=== PATIENT | male | born 1960 | race Caucasian/White ===

== ENCOUNTER 2019-07-13 16:56 | Observation (INO) | payer BC, OTHER ==
[2019-07-13] MEDS ORDERED: ASPIRIN 81 MG CHEWABLE TABLET ONE (17:35)
[2019-07-13 17:52] LABS: Protime INR 1.12
--- NOTE | 2019-07-13 17:52 | RAD REPORT ---
EXAM DESCRIPTION: RAD - Chest Single View - 07/13/2019 5:34 pm CLINICAL HISTORY: CHEST PAIN Chest pain. COMPARISON: CHEST SINGLE VIEW dated 11/09/2013; CHEST SINGLE VIEW dated 11/08/2013 FINDINGS: Portable technique limits examination quality. Mild interstitial pulmonary edema suspected. The heart is mildly prominent in size. No displaced frac tures. IMPRESSION: Mild CHF.
[2019-07-13 17:54] LABS: Absolute Lymphocytes (CBC) 2.7 K/uL (0.7-4.9); Basophils % 1.1 % (0-1.3); Hematocrit 40.5 % (39.6-49.0); MPV 10.3 fL (7.6-11.3); RBC Red Blood Cell Count 4.74 M/uL (4.33-5.43)
[2019-07-13 18:06] LABS: ALT/SGPT 37 U/L (12-78); AST/SGOT 14 U/L (15-37); Albumin 3.7 g/dL (3.4-5.0); Alkaline Phosphatase 80 U/L (45-117); BUN Blood Urea Nitrogen 17 mg/dL (7-18); Bicarbonate 27 mmol/L (21-32); Bilirubin Direct 0.2 mg/dL (0-0.2); Bilirubin Total 0.4 mg/dL (0.2-1.0); Glucose Level 87 mg/dL (74-106); Magnesium 2.1 mg/dL (1.8-2.4); NT PRO-BNP 223 pg/mL (<125); Potassium 3.9 mmol/L (3.5-5.1); Protein, Total 7.8 g/dL (6.4-8.2); Sodium Level 139 mmol/L (136-145); Troponin (Emerg Dept Use Only) < 0.02 ng/mL (0.0-0.045)
[2019-07-13] MEDS ORDERED: ALBUTEROL 2.5 MG/3 ML NEB SOL NEB PRN (21:06)
--- NOTE | 2019-07-13 21:13 | P.HP ---
Certification for Inpatient Patient admitted to: Observation With expected LOS: <2 Midnights Practitioner: I am a practitioner with admitting privileges, knowledge of patient current condition, hospital course, and medical plan of care. Services: Services provided to patient in accordance with Admission requirements found in Title 42 Section 412.3 of the Code of Federal Regulations Patient History Date of Service: 07/13/19 Reason for admission: Chest pressure History of Present Illness: 59-year-old morbidly obese gentleman with a history of GERD presented emergency department with a complaint of chest pressure of onset this afternoon. Patient reports 1 week history of fatigue and shortness of breath with exertion. He denied any palpitation or sweating or diaphoresis. He denied any nausea during the chest pressure episode. He denies any cough or wheezing. EKG done in the emergency department shows left bundle branch block which is new compared to his EKG done in 2013. His initial troponin is negative. Chest x-ray demonstrates mild congestive heart failure. Patient is placed under observation for ACS rule out and for further management of new onset CHF. Allergies No Known Allergies Allergy (Verified 11/08/13 14:01) Home Medications: Ibuprofen [Motrin*] 200 mg PO TID PRN 11/08/13 Pantoprazole [Protonix Tab*] 40 mg PO DAILY 11/08/13 - Past Medical/Surgical History Diabetic: No -: Diverticulosis -: Hiatal hernia -: GERD -: SHE -: Diverticulitis, 2012 -: Broken left little finger, 2006 - Family History Mother -: Other (see notes) (COPD, breast cancer.) - Social History Smoking Status: Former smoker Alcohol use: Yes CD- Drugs: No Caffeine use: Yes Place of Residence: Home Review of Systems Other: Except as documented, all other systems reviewed and negative. Physical Examination - Physical Exam General: Alert, In no apparent distress, Oriented x3 HEENT: Normocephalic, PERRLA, Mucous membr. moist/pink, EOMI, Sclerae nonicteric Neck: Supple, JVD not distended Respiratory: Clear to auscultation bilaterally, Normal air movement Cardiovascular: No edema, Regular rate/rhythm, Normal S1 S2, No murmurs Capillary refill: <2 Seconds Gastrointestinal: Normal bowel sounds, Soft and benign, No tenderness Musculoskeletal: No swelling, No erythema Integumentary: No rashes, No erythema Neurological: Normal speech, Normal strength at 5/5 x4 extr, Cranial nerves 3-12 intact - Studies Laboratory Data (last 24 hrs) 07/13/19 17:35: PT 13.2 H, INR 1.12 07/13/19 17:35: WBC 9.9, Hgb 13.5 L, Hct 40.5, Plt Count 201 07/13/19 17:35: Sodium 139, Potassium 3.9, BUN 17, Creatinine 0.96, Glucose 87, Magnesium 2.1, Total Bilirubin 0.4, AST 14 L, ALT 37, Alkaline Phosphatase 80 Assessment and Plan - Problems (Diagnosis) (1) Left bundle branch block Current Visit: Yes Status: Acute (2) New onset of congestive heart failure Current Visit: Yes Status: Acute (3) Chest pain Current Visit: No Status: Acute (4) Gastroesophageal reflux disease Current Visit: No Status: Chronic - Plan Place under observation. Trend troponin x3 Start aspirin, Plavix, beta-radha. IV Lasix. Given dose of full-dose Lovenox given new left bundle branch block. Obtain echocardiogram Cardiology consult Check TSH, hemoglobin A1c. Protonix for GERD - Advance Directives Does patient have a Living Will: No Does patient have a Durable POA for Healthcare: No
[2019-07-13] MEDS ORDERED: ENOXAPARIN 60 MG/0.6 ML SQ ONE (21:21)
[2019-07-13] MEDS ORDERED: ENOXAPARIN 100 MG/ML SYR SQ ONE (21:21)
[2019-07-13] MEDS ORDERED: CLOPIDOGREL 75 MG TABLET ONE (21:21)
[2019-07-13 22:56] VITALS: BMI 47.5
[2019-07-14 06:32] LABS: Phosphorus 3.8 mg/dL (2.5-4.9); Potassium 4.2 mmol/L (3.5-5.1)
[2019-07-14 07:10] LABS: Absolute Lymphocytes (CBC) 3.1 K/uL (0.7-4.9); Basophils % 0.8 % (0-1.3); Hematocrit 38.5 % (39.6-49.0); Lymphocytes % 34.1 % (15.3-44.8); MPV 10.5 fL (7.6-11.3); RBC Red Blood Cell Count 4.47 M/uL (4.33-5.43)
[2019-07-14] MEDS ORDERED: REGADENOSON 0.4 MG/5 ML SYR IV ONE (08:20)
--- NOTE | 2019-07-14 09:11 | P.PN ---
Subjective Date of Service: 07/14/19 Chief Complaint: Chest pressure Subjective: No new changes Patient reports no complaints. He states the chest pain has resolved. He denies shortness of breath at the moment. Physical Examination - Vital Signs Temperature: 96.9 F Blood Pressure: 121/56 Pulse: 70 Respirations: 16 Pulse Ox (%): 94 - Physical Exam General: Alert, In no apparent distress, Oriented x3 HEENT: Mucous membr. moist/pink Neck: Supple, JVD not distended Respiratory: Clear to auscultation bilaterally, Normal air movement Cardiovascular: No edema, Regular rate/rhythm, Normal S1 S2 Gastrointestinal: Normal bowel sounds, Non-distended, No tenderness Musculoskeletal: No swelling Integumentary: No rashes Neurological: Normal strength at 5/5 x4 extr - Studies Laboratory Data (last 24 hrs) 07/13/19 17:35: PT 13.2 H, INR 1.12 07/13/19 17:35: WBC 9.9, Hgb 13.5 L, Hct 40.5, Plt Count 201 07/13/19 17:35: Sodium 139, Potassium 3.9, BUN 17, Creatinine 0.96, Glucose 87, Magnesium 2.1, Total Bilirubin 0.4, AST 14 L, ALT 37, Alkaline Phosphatase 80 Assessment And Plan - Current Problems (Diagnosis) (1) Left bundle branch block Current Visit: Yes Status: Acute (2) New onset of congestive heart failure Current Visit: Yes Status: Acute (3) Chest pain Current Visit: No Status: Acute (4) Gastroesophageal reflux disease Current Visit: No Status: Chronic - Plan Troponin x3 is negative Continue aspirin, Plavix, metoprolol Continue IV Lasix. Patient given full-dose Lovenox in the ED yesterday. Full dose lovenox Obtain echocardiogram Cardiology consult. I spoke to Dr. Aguilar. He recommended nuclear stress test which has been requested. Cardiology to follow. Lipid profile within acceptable limits. Add lipitor. Protonix for GERD
--- NOTE | 2019-07-14 12:52 | EKG ---
Test Date: 2019-07-13 Test Time: 17:11:54 Keysmith: ROBERT MEASUREMENT RESULTS: Intervals: Rate: 83 LA: 196 QRSD: 164 QT: 428 QTc: 502 Mclean: P: 62 LA: 196 QRS: -25 T: 88 INTERPRETIVE STATEMENTS: Sinus rhythm with fusion complexes Left bundle branch block Abnormal ECG Compared to ECG 11/09/2013 06:50:05 Fusion complex(es) now present Left bundle-branch block now present Sinus bradycardia no longer present Sinus arrhythmia no longer present Electronically Signed On 07-14-19 12:50:27 CDT by Dajuan Aguilar
[2019-07-14] MEDS ORDERED: ALBUTEROL 2.5 MG/3 ML NEB SOL NEB PRN (14:00)
--- NOTE | 2019-07-14 14:10 | RAD REPORT ---
EXAM DESCRIPTION: NM - Rest Stress Cardiac Imaging - 07/14/2019 2:02 pm CLINICAL HISTORY: Chest pain COMPARISON: None. TECHNIQUE: The patient was administered approximately 10 mCi of Tc 99m Sestamibi prior to resting SP ECT imaging of the heart. The patient was then administered approximately 30 mCi of Tc 99m Sestamibi following exercise or pharmacologic stress. Multiplanar SPECT images were reviewed. FINDINGS: The end diastolic volume is 247 ml, the end systolic volume is 182 ml, and the ejection fr action is 27 %. No stress-induced ischemia confirmed. Diminished activity is seen along the inferior wall probably th e affects of diaphragm attenuation and ventriculomegaly. Focal scarring changes are evident anterior septal wall mid apex portion. IMPRESSION: No stress-induced ischemic changes identifiable. Patient has substantial ventriculomegaly with a 247 mL end-diastolic volume. Ejection fraction is zay y poor at 27%.
[2019-07-14] MEDS: FUROSEMIDE 40 MG/4 ML VIAL IV SCH ×2 (14:38→17:15)
[2019-07-14] MEDS: ASPIRIN EC 81 MG TAB PO SCH (14:38)
[2019-07-14] MEDS ORDERED: ATORVASTATIN 10 MG TAB PO SCH (21:00)
[2019-07-14] MEDS ORDERED: ENOXAPARIN 40 MG/0.4 ML SQ SCH (21:00)
--- NOTE | 2019-07-14 22:14 | CON ---
Date of Consultation: 07/14/2019 Reason For Consultation: Congestive heart failure. History Of Present Illness: Mr. Juarez is a 59-year-old male with history of gastroesophageal refl ux disease, sleep apnea, diverticulitis, and diverticulosis. He did not have any past cardiac histor y. The patient has morbid obesity. He came in with chest pressure and fatigue as well as shortness of breath with exertion that has been going on for about a week. He denied any nausea, vomiting, mo phoresis, PND, orthopnea, pedal edema, palpitation, or syncope. Denied any fever or chills. He has a left bundle-branch block on an EKG. Chest x-ray revealed mild congestive heart failure. Troponin was negative. Past Medical History: As stated earlier. Allergies: NONE. Medications: At home include ibuprofen and Protonix. Review of Systems: Negative. Social History: Negative. Family History: Positive for breast cancer and COPD. Physical Examination: General: He weighed 340 pounds. Blood pressure was 143/68. He was in sinus rhythm and was afebrile . O2 saturation was 96% on room air. HEENT: Negative. Neck: Supple without any bruit, lymphadenopathy, JVD, or thyromegaly. Chest: Rales in both bases. Cardiac: Regular rhythm and rate. No murmurs, gallops, or rubs. Abdomen: Obese, but benign. Extremities: Trace edema. Laboratory Data: His creatinine is 0.95. His hemoglobin was 13. His white count was normal. His t roponin was normal. His BNP was 223. His lipid profile was normal. Chest x-ray was stated earlier. His EKG showed left bundle-branch block. Impression And Plan: Dyspnea on exertion, chest tightness, and congestive heart failure by x-ray. T his is new onset. The patient is feeling better after diuresis. He is presently receiving aspirin, albuterol inhalers, Lasix. He is on Lipitor. He is on Plavix. He is on Lovenox. I think we need t o get a 2D echocardiogram. It would be reasonable to get a Lexiscan on him today to see if he has an y ischemia. Continue diuresis as well. His other problems include morbid obesity, gastroesophageal reflux disease. We will see what the echocardiogram and the Lexiscan show before making final decisi ons. NB/MODL Voice ID: [id number] Report ID: [id number]
[2019-07-15 05:48] VITALS: O2SAT 96
--- NOTE | 2019-07-15 07:44 | PN ---
Date of Progress Note: 07/15/2019 Mr. Juarez was admitted with chest pressure, gastroesophageal reflux disease. He has morbid obesit y, was found to have new evidence of congestive heart failure, has a left bundle branch block, unknow n duration. The stress test yesterday showed no ischemia; however, his ejection fraction came back 2 7%. He is feeling much better. He diuresed well. He is asymptomatic. However, his echocardiogram was not done yesterday, it will be done today. We will see what that shows prior to making decisions as far as discharge. The patient should go home on PASCUAL inhibitors, Coreg and Lasix. He needs to wa tch his fluid intake and salt intake and I will see him in the office in 2 weeks. GIOVANNI/JACKSON Voice ID: [id number] Report ID: [id number]
--- NOTE | 2019-07-15 08:36 | P.DS ---
Admission Date: 07/13/19 Discharge Date: 07/15/19 Disposition: ROUTINE DISCHARGE Discharge Condition: FAIR Reason for Admission: Chest pressure Consultations: Cardiology - Problems (1) Left bundle branch block Status: Acute (2) New onset of congestive heart failure Status: Acute (3) Chest pain Status: Acute (4) Gastroesophageal reflux disease Status: Chronic Brief History of Present Illness: 59-year-old morbidly obese gentleman with a history of GERD presented emergency department with a complaint of chest pressure of onset this afternoon. Patient reports 1 week history of fatigue and shortness of breath with exertion. He denied any palpitation or sweating or diaphoresis. He denied any nausea during the chest pressure episode. He denies any cough or wheezing. EKG done in the emergency department shows left bundle branch block which is new compared to his EKG done in 2013. His initial troponin is negative. Chest x-ray demonstrates mild congestive heart failure. Patient is placed under observation for ACS rule out and for further management of new onset CHF. Hospital Course: Patient admitted to the medical floor. Troponin trended came back negative. Patient seen by cardiology Nuclear stress test performed showed no evidence of it cardiac ischemia. It did report ventriculomegaly with low ejection fraction of 27%. Patient diagnosed with systolic heart failure. Patient prescribed Coreg, and PASCUAL-inhibitor and aspirin. He was given IV Lasix. Patient became compensated for CHF. Echocardiogram done report EF of 25-30% and severe anterior and anterior septal hypokinesis. He will follow with Dr. Aguilar as an outpatient within 1-2 weeks. Vital Signs/Physical Exam: Temp Pulse Resp BP Pulse Ox 96.0 F L 74 18 119/56 L 96 07/15/19 04:00 07/15/19 04:00 07/15/19 04:00 07/15/19 04:00 07/15/19 04:00 General: Alert, In no apparent distress HEENT: Normocephalic, Mucous membr. moist/pink Neck: Supple, JVD not distended Respiratory: Clear to auscultation bilaterally, Normal air movement Cardiovascular: No edema, Regular rate/rhythm, Normal S1 S2 Capillary refill: <2 Seconds Gastrointestinal: Normal bowel sounds, Soft and benign, No tenderness Musculoskeletal: No swelling, No erythema Integumentary: No rashes Neurological: Normal strength at 5/5 x4 extr Laboratory Data at Discharge: WBC 9.1 K/uL (4.3-10.9) 07/14/19 05:05 Hgb 13.1 g/dL (13.6-17.9) L 07/14/19 05:05 Hct 38.5 % (39.6-49.0) L 07/14/19 05:05 Plt Count 182 K/uL (152-406) 07/14/19 05:05 PT 13.2 SECONDS (9.5-12.5) H 07/13/19 17:35 INR 1.12 07/13/19 17:35 Sodium 141 mmol/L (136-145) 07/14/19 05:05 Potassium 4.2 mmol/L (3.5-5.1) 07/14/19 05:05 BUN 15 mg/dL (7-18) 07/14/19 05:05 Creatinine 0.95 mg/dL (0.55-1.3) 07/14/19 05:05 Glucose 96 mg/dL (74-106) 07/14/19 05:05 Phosphorus 3.8 mg/dL (2.5-4.9) 07/14/19 05:05 Magnesium 2.1 mg/dL (1.8-2.4) 07/13/19 17:35 Total Bilirubin 0.4 mg/dL (0.2-1.0) 07/13/19 17:35 AST 14 U/L (15-37) L 07/13/19 17:35 ALT 37 U/L (12-78) 07/13/19 17:35 Alkaline Phosphatase 80 U/L (45-117) 07/13/19 17:35 Troponin I < 0.02 ng/mL (0.0-0.045) 07/14/19 01:20 Triglycerides 59 mg/dL (<150) 07/14/19 05:05 Cholesterol 143 mg/dL (<200) 07/14/19 05:05 HDL Cholesterol 71 mg/dL (40-60) H 07/14/19 05:05 Cholesterol/HDL Ratio 2.01 07/14/19 05:05 Home Medications: Pantoprazole [Protonix Tab*] 40 mg PO DAILY 11/08/13 Cetirizine HCl [Zyrtec*] 10 mg PO DAILY PRN 07/13/19 Aspirin Chewable [Aspirin Chewable*] 81 mg PO DAILY #30 tab.chew 07/15/19 Atorvastatin Calcium [Lipitor] 40 mg PO BEDTIME #30 tab 07/15/19 Furosemide [Lasix] 40 mg PO DAILY #30 tablet 07/15/19 Lisinopril [Zestril] 5 mg PO DAILY #30 tablet 07/15/19 carvediloL [Coreg] 6.25 mg PO BID #60 tab 07/15/19 New Medications: Aspirin Chewable [Aspirin Chewable*] 81 mg PO DAILY #30 tab.chew carvediloL [Coreg] 6.25 mg PO BID #60 tab Furosemide [Lasix] 40 mg PO DAILY #30 tablet Atorvastatin Calcium [Lipitor] 40 mg PO BEDTIME #30 tab Lisinopril [Zestril] 5 mg PO DAILY #30 tablet Diet: AHA Activity: Ad jyoti Followup: Dajuan Aguilar MD [ACTIVE - CAN ADMIT] - Time spent managing pt's care (in minutes): 38
--- NOTE | 2019-07-15 08:55 | TREADPHA ---
DX: CONGESTIVE HEART FAILURE Date of Study: 07/14/2019 Ht: 5' 11 " Wt: 340 lb 14.4 oz Consulting Physician: JEANNE MEDICATIONS: PROVENTIL, ASPIRIN, LOVENOX, LASIX HISTORY: 59 YEAR OLD MALE WITH COMPLAINTS OF CHEST PAIN. HISTORY OF SMOKING AND ACID REFLUX. PHYSICIAL EXAMINATION: RESTING B.P.: 126/64 RESTING H.R.: 72 RESTING EKG: SINUS RHYTHM, LEFT BUNDLE BRANCH BLOCK. PROTOCOL: LEXISCAN EXERCISE TIME: 3:30 B.P. AT PEAK STRESS: 132/65 IMPRESSION: LEXISCAN INJECTED, INJECTED PER PROTOCOL. SEE NUCLEAR MEDICINE REPORT. NO SUPRA VENTRICULAR TACHYCARDIA, NO VENTRICULAR TACHYCARDIA, OCCASIONAL PREMATURE VENTRICULAR COMPLEXES. DENIED CHEST PAIN.
[2019-07-15] MEDS ORDERED: CLOPIDOGREL 75 MG TABLET PO SCH (09:00)
[2019-07-15] MEDS: FUROSEMIDE 40 MG/4 ML VIAL IV SCH (09:14)
[2019-07-15] MEDS: ASPIRIN EC 81 MG TAB PO SCH (09:14)
[2019-07-15 09:19] VITALS: BP 139/68
[2019-07-15 09:54] VITALS: TEMP 97.2
--- NOTE | 2019-07-15 12:21 | ECHO ---
HEIGHT: 5 ft 11 in WEIGHT: 340 lb 14.4 oz DATE OF STUDY: 07/15/[address]: mayito corrales 2-DIMENSIONAL: YES M.MODE: YES DOPPLER: YES COLOR FLOW: YES TDS: PORTABLE: DEFINITY: BUBBLE STUDY: DIAGNOSIS: CONGESTIVE HEART FAILURE CARDIAC HISTORY: CATHERIZATION: NO SURGERY: NO PROSTHETIC VALVE: NO PACEMAKER: NO MEASUREMENTS (cm) DIASTOLIC (NORMALS) SYSTOLIC (NORMALS) IVSd 1.2 (0.6-1.2) LA Diam 3.4 (1.9-4.0) LVEF 51% LVIDd 6.0 (3.5-5.7) LVIDs 4.4 (2.0-3.5) %FS 26% LVPWd 1.2 (0.6-1.2) Ao Diam 3.3 (2.0-3.7) 2 DIMENSIONAL ASSESSMENT: RIGHT ATRIUM: NORMAL LEFT ATRIUM: MILD ENLARGED RIGHT VENTRICLE: NORMAL LEFT VENTRICLE: DILATED TRICUSPID VALVE: NORMAL MITRAL VALVE: NORMAL PULMONIC VALVE: NORMAL AORTIC VALVE: NORMAL PERICARDIAL EFFUSION: NONE AORTIC ROOT: NORMAL LEFT VENTRICULAR WALL MOTION: MODERATE TO SEVERE LEFT VENTRICULAR DYSFUNCTION. EJECTION FRACTION 25-30%, ANTEROSEPTAL SEVERE HYPOKINESIS. DOPPLER/COLOR FLOW: DIASTOLIC DYSFUNCTION COMMENTS: MODERATE TO SEVERE LEFT VENTRICULAR DYSFUNCTION 25-30%. SEVERE ANTERIOR AND ANTEROSEPTAL HYPOKINESIS. DIASTOLIC DYSFUNCTION. TECHNOLOGIST: LORA HAYS
--- NOTE | 2019-07-19 13:38 | ER ---
Nurse's Notes [facility] Name: Denys Juarez Age: 59 yrs Sex: Male : 1960 Arrival Date: 07/13/2019 Time: 16:56 Bed 20 Private MD: Diagnosis: Chest pain, unspecified Presentation: 07/12 16:58 Chief complaint: Patient states: "I've been short of breath and fatigued for a while aa5 now but today I started with this pressure on my chest". Pt reports chest pressure to left side of chest radiating to mid-sternal area. Pt reports chronic slight cough, denies fever. 16:58 Coronavirus screen: Patient reports a cough. Patient reports shortness of breath or aa5 difficulty breathing. Patient denies measured and/or subjective temperature greater than 100.4F prior to today's visit. Patient denies travel on a cruise ship or to a country the [facility] currently lists as an affected area. Patient denies contact with known and/or suspected case of COVID-19. Ebola Screen: Patient negative for fever greater than or equal to 101.5 degrees Fahrenheit, and additional compatible Ebola Virus Disease symptoms. Initial Sepsis Screen: Does the patient meet any 2 criteria? No. Patient's initial sepsis screen is negative. Does the patient have a suspected source of infection? No. Patient's initial sepsis screen is negative. Risk Assessment: Do you want to hurt yourself or someone else? Patient reports no desire to harm self or others. Onset of symptoms was June 2019. 16:58 Acuity: MARGARETH 3 aa5 16:58 Method Of Arrival: Ambulatory aa5 Historical: - Allergies: 16:58 No Known Allergies; aa5 - Home Meds: 16:58 pantoprazole oral oral [Active]; aa5 - PMHx: 16:58 Acid Reflux; aa5 - PSHx: 16:58 diverticulitis; aa5 - Immunization history:: Adult Immunizations unknown. - Social history:: Smoking status: Patient/guardian denies using tobacco, but has a distant history of tobacco abuse. Screenin:07 Abuse screen: Denies threats or abuse. Nutritional screening: No deficits noted. rb1 Tuberculosis screening: No symptoms or risk factors identified. Fall Risk None identified. Assessment: 17:07 General: Appears in no apparent distress. comfortable, Behavior is calm, cooperative, rb1 Denies fever. General: Reports fatigue for. Pain: Complains of pain in left lateral chest Pain radiates to mid-sternal area Pain currently is 1 out of 10 on a pain scale. Quality of pain is described as pressure, Pain began 4 hours ago. Neuro: Level of Consciousness is awake, alert, obeys commands, Oriented to person, place, time, situation. Cardiovascular: Capillary refill < 3 seconds. Respiratory: Reports shortness of breath Airway is patent Respiratory effort is even, unlabored, Respiratory pattern is regular, symmetrical. GI: No signs and/or symptoms were reported involving the gastrointestinal system. : No signs and/or symptoms were reported regarding the genitourinary system. Derm: Skin is pink, warm \\T\\ dry. 18:00 Reassessment: Patient appears in no apparent distress at this time. No changes from [facility] previously documented assessment. 19:15 Reassessment: Patient appears in no apparent distress at this time. Patient and/or family updated on plan of care and expected duration. Pain level reassessed. Patient is alert, oriented x 3, equal unlabored respirations, skin warm/dry/pink. 20:51 Reassessment: Patient appears in no apparent distress at this time. No changes from previously documented assessment. Patient and/or family updated on plan of care and expected duration. Pain level reassessed. Patient is alert, oriented x 3, equal unlabored respirations, skin warm/dry/pink. 21:00 Reassessment: MD at bedside explained POC need for admit. Vital Signs: 16:58 BP 151 / 75; Pulse 100; Resp 20 S; Temp 97.8(O); Pulse Ox 96% on R/A; Weight 154.22 kg aa5 (R); Height 5 ft. 10 in. (177.80 cm) (R); Pain 1/10; 18:00 BP 126 / 66; Pulse 81; Resp 18; Pulse Ox 96% on R/A; rb1 19:30 BP 135 / 69; Pulse 77; Resp 18; Pulse Ox 97% on R/A; wh 20:30 BP 127 / 57; Pulse 74; Resp 18; Pulse Ox 95% on R/A; wh 21:00 BP 131 / 62; Pulse 73; Resp 18; Pulse Ox 99% on R/A; wh 16:58 Body Mass Index 48.78 (154.22 kg, 177.80 cm) aa5 ED Course: 16:56 Patient arrived in ED. as 16:58 Arm band placed on Patient placed in an exam room, on a stretcher. aa5 17:02 Yunior Mabry NP is PHCP. pm1 17:02 Edgar Jacobson MD is Attending Physician. pm1 17:07 Patient has correct armband on for positive identification. Bed in low position. Call rb1 light in reach. Side rails up X 1. shaft mechanic on. Pulse ox on. NIBP on. 17:07 Patient maintains SpO2 saturation greater than 95% on room air. rb1 17:10 Triage completed. aa5 17:25 Abbi Joe, RN is Primary Nurse. rb1 17:34 XRAY Chest (1 view) In Process Unspecified. EDMS 17:35 Inserted saline lock: 22 gauge in right antecubital area, using aseptic technique. rb1 Blood collected. 18:31 Regla Thompson MD is Hospitalizing Provider. pm1 21:24 No provider procedures requiring assistance completed. Patient admitted, IV remains in place. Administered Medications: 17:30 Drug: Aspirin Chewable Tablet 324 mg Route: PO; rb1 18:00 Follow up: Response: No adverse reaction [facility] 21:20 Drug: Lovenox 1 mg/kg Route: Sub-Q; Site: right lower abdomen; 21:24 Follow up: Response: No adverse reaction 21:20 Drug: PlaVIX 300 mg Route: PO; 21:24 Follow up: Response: No adverse reaction Outcome: 18:32 Decision to Hospitalize by Provider. pm1 21:24 Admitted to Med/surg accompanied by tech, via wheelchair, room 205, with chart, Report called to Gautam Hernandes RN 21:24 Condition: stable 21:24 Instructed on the need for admit. 21:25 Patient left the ED. Signatures: Dispatcher [employer] Elizabeth Esquivel Audri, RN RN aa5 Abbi Joe, GIORGI RN rb1 Yunior Mabry, MARITO BUHR MILL OPERATOR pm1 Georgina Sevilla
--- NOTE | 2019-07-19 13:38 | EDPHYS ---
Physician Documentation [facility] Name: Denys Juarez Age: 59 yrs Sex: Male : 1960 Arrival Date: 07/13/2019 Time: 16:56 Bed 20 Private MD: ED Physician Edgar Jacobson HPI: 07/12 17:13 This 59 yrs old Male presents to ER via Ambulatory with complaints of Chest pm1 Pressure. 17:13 The patient or guardian reports chest pain that is located primarily in the mid-sternal pm1 area. 17:13 Onset: 4 hour(s) ago. The pain does not radiate. Associated signs and symptoms: pm1 Pertinent positives: shortness of breath, with exertion. shortness of breath has been present for many months, Pertinent negatives: abdominal pain, cough, diaphoresis, lower extremity pain, lower extremity swelling, nausea, palpitations, syncope, vomiting. The chest pain is described as a pressure. Duration: The patient or guardian reports a single episode, that is still ongoing, but improving. Modifying factors: The symptoms are alleviated by nothing. the symptoms are aggravated by nothing. Severity of pain: in the emergency department the pain has improved is a 1 / 10 initially 4/10. The patient has not experienced similar symptoms in the past. The patient has not recently seen a physician, the patient's primary care provider is Dr. Heber GARCIA. Patient with chest pain that started 4 hours prior to arrival. Started in the left lower chest around his nipple then moved to midsternal area. Pain initially 4/10 and now 1/10. Historical: - Allergies: 16:58 No Known Allergies; aa5 - Home Meds: 16:58 pantoprazole oral oral [Active]; aa5 - PMHx: 16:58 Acid Reflux; aa5 - PSHx: 16:58 diverticulitis; aa5 - Immunization history:: Adult Immunizations unknown. - Social history:: Smoking status: Patient/guardian denies using tobacco, but has a distant history of tobacco abuse. ROS: 17:13 Constitutional: Negative for fever, chills, and weight loss, Neck: Negative for injury, pm1 pain, and swelling. 17:13 Abdomen/GI: Negative for abdominal pain, nausea, vomiting, diarrhea, and constipation, Back: Negative for injury and pain, MS/Extremity: Negative for injury and deformity, Skin: Negative for injury, rash, and discoloration, Neuro: Negative for headache, weakness, numbness, tingling, and seizure. 17:13 Cardiovascular: Positive for chest pain, Negative for edema, orthopnea, palpitations. 17:13 Respiratory: Positive for shortness of breath, on exertion. Negative for cough. Exam: 17:13 Constitutional: This is a well developed, well nourished patient who is awake, alert, pm1 and in no acute distress. Head/Face: Normocephalic, atraumatic. Chest/axilla: Normal chest wall appearance and motion. Nontender with no deformity. No lesions are appreciated. 17:13 Respiratory: Lungs have equal breath sounds bilaterally, clear to auscultation and percussion. No rales, rhonchi or wheezes noted. No increased work of breathing, no retractions or nasal flaring. Abdomen/GI: Soft, non-tender, with normal bowel sounds. No distension or tympany. No guarding or rebound. No evidence of tenderness throughout. Back: No spinal tenderness. No costovertebral tenderness. Full range of motion. Skin: Warm, dry with normal turgor. Normal color with no rashes, no lesions, and no evidence of cellulitis. MS/ Extremity: Pulses equal, no cyanosis. Neurovascular intact. Full, normal range of motion. 17:13 Cardiovascular: Rate: normal, Rhythm: regular, Pulses: no pulse deficits are appreciated, Heart sounds: normal, normal S1and S2, Edema: is not appreciated. 17:13 Neuro: Exam negative for acute changes, Orientation: is normal, Mentation: is normal, Motor: is normal, moves all fours. Vital Signs: 16:58 BP 151 / 75; Pulse 100; Resp 20 S; Temp 97.8(O); Pulse Ox 96% on R/A; Weight 154.22 kg aa5 (R); Height 5 ft. 10 in. (177.80 cm) (R); Pain 1/10; 18:00 BP 126 / 66; Pulse 81; Resp 18; Pulse Ox 96% on R/A; rb1 19:30 BP 135 / 69; Pulse 77; Resp 18; Pulse Ox 97% on R/A; wh 20:30 BP 127 / 57; Pulse 74; Resp 18; Pulse Ox 95% on R/A; wh 21:00 BP 131 / 62; Pulse 73; Resp 18; Pulse Ox 99% on R/A; wh 16:58 Body Mass Index 48.78 (154.22 kg, 177.80 cm) aa5 MDM: 17:12 Patient medically screened. pm1 18:20 Data reviewed: vital signs. Data interpreted: Pulse oximetry: on room air is 96 %. pm1 Interpretation: normal. Counseling: I had a detailed discussion with the patient and/or guardian regarding: the historical points, exam findings, and any diagnostic results supporting the discharge/admit diagnosis, the need for further work-up and treatment in the hospital. 18:36 Physician consultation: Regla Thompson MD was called at 18:36, was contacted at 18:36, pm1 regarding admission, patient's condition, Transition at during shift change: Robert will see the patient . 07/12 17:12 Order name: Basic Metabolic Panel; Complete Time: 18:08 pm07/12 17:12 Order name: CBC with Diff; Complete Time: 18:01 pm07/12 17:12 Order name: LFT's; Complete Time: 18:08 pm07/12 17:12 Order name: Magnesium; Complete Time: 18:08 pm07/12 17:12 Order name: NT PRO-BNP; Complete Time: 18:08 pm07/12 17:12 Order name: PT-INR; Complete Time: 18:01 pm07/12 17:12 Order name: Troponin (emerg Dept Use Only); Complete Time: 18:08 pm07/12 17:12 Order name: XRAY Chest (1 view); Complete Time: 18:01 pm07/12 17:12 Order name: EKG; Complete Time: 17:14 pm07/12 17:12 Order name: Cardiac monitoring; Complete Time: 17:41 pm07/12 17:12 Order name: EKG - Nurse/Tech; Complete Time: 17:41 pm07/12 17:12 Order name: IV Saline Lock; Complete Time: 17:41 pm07/12 17:12 Order name: Labs collected and sent; Complete Time: 17:41 pm07/12 17:12 Order name: O2 Per Protocol; Complete Time: 17:41 pm07/12 17:12 Order name: O2 Sat Monitoring; Complete Time: 17:42 pm1 EC:32 Rate is 83 beats/min. Rhythm is regular. No Q waves. T waves are Normal. No ST changes pm1 noted. Clinical impression: Left bundle branch block. Changes noted from previous ECG on November 09, 2013. Previous findings: Sinus arrythmia and Sinus bradycardia. Administered Medications: 17:30 Drug: Aspirin Chewable Tablet 324 mg Route: PO; rb1 18:00 Follow up: Response: No adverse reaction [facility] [place] 21:20 Drug: Lovenox 1 mg/kg Route: Sub-Q; Site: right lower abdomen; 21:24 Follow up: Response: No adverse reaction 21: Drug: PlaVIX 300 mg Route: PO; 21:24 Follow up: Response: No adverse reaction Disposition: 07/13/19 18:32 Hospitalization ordered by Regla Thompson for Observation. Preliminary diagnosis is Chest pain, unspecified. - Bed requested for Telemetry/MedSurg (observation). - Status is Observation. - Condition is Stable. - Problem is new. - Symptoms have improved. Addendum: 07/23/2019 07:09 Co-signature as Attending Physician, Edgar Jacobson MD. r n Signatures: Dispatcher [employer] Jhoana Valencia RN RN Edgar Brown MD MD rn Calderon, Audri RN RN aa5 Abbi Joe, RN RN rb1 Yunior Mabry, AUTO RADIATOR MECHANIC AUTO RADIATOR MECHANIC pm1 Georgina Sevilla Corrections: (The following items were deleted from the chart) 07/12 19:19 18:32 Hospitalization Ordered by Regla Thompson MD for Observation. Preliminary diagnosis dw is Chest pain, unspecified. Bed requested for Telemetry/MedSurg (observation). Status is Observation. Condition is Stable. Problem is new. Symptoms have improved. pm1 19:44 19:19 07/13/2019 18:32 Hospitalization Ordered by Regla Thompson MD for Observation. Preliminary diagnosis is Chest pain, unspecified. Bed requested for Telemetry/MedSurg (observation). Status is Observation. Condition is Stable. Problem is new. Symptoms have improved. 21:25 19:44 07/13/2019 18:32 Hospitalization Ordered by Regla Thompson MD for Observation. Preliminary diagnosis is Chest pain, unspecified. Bed requested for Telemetry/MedSurg (observation). Status is Observation. Condition is Stable. Problem is new. Symptoms have improved. dw
== END 2019-07-15 12:15 | disposition home or self-care (01) ==
LOC: ER 16:56 → ERHOLD 20:44 → 2ND 21:05
PROVIDERS: ADMIT Internal Medicine; ATTEND Internal Medicine
DX: I50.21 Acute systolic (congestive) heart failure (principal); K21.9 Gastro-esophageal reflux disease without esophagitis; K57.90 Diverticulosis of intestine, part unspecified, without perforation or abscess without bleeding; K44.9 Diaphragmatic hernia without obstruction or gangrene; G47.33 Obstructive sleep apnea (adult) (pediatric); I44.7 Left bundle-branch block, unspecified; E66.01 Morbid (severe) obesity due to excess calories; Z68.42 Body mass index [BMI] 45.0-49.9, adult
CPT/HCPCS: 93005; 93017; 93306; 85025 ×2; 80048 ×2; 36415; 83735; 84100; 85610; 80061; 80076; 84484 ×3; 83880; 71045; 78452; 96372; 99285; J1940 ×3; J1650 ×4; J2785; A9500; G0378 ×4

== ENCOUNTER 2020-03-07 07:55 | Emergency (ER) | payer BC ==
--- OUTSIDE RECORDS SUMMARY | 2020-03-07 08:01 | XMS REPORT | Continuity of Care Document ---
:1960 Author Organization [facility] t Address [address] [place] [address] Care Team Providers Name Role Phone Liam GARCIA, Royal Attending Clinician Problems This patient has no known problems. Allergies, Adverse Reactions, Alerts This patient has no known allergies or adverse reactions. Medications This patient has no known medications. Procedures This patient has no known procedures. Encounters Start End Encounter Admission Attending Care Care Encounter Source Date/Time Date/Time Type Type Clinicians Facility Department ID 2019-10-18 2019-10-18 Office SUKH Wheeler [id number] 09:58:54 10:13:54 Visit Humberto Rutledge [id number] [place] [id number] [place] [id number] [address] Results This patient has no known results.
[2020-03-07] MEDS ORDERED: ASPIRIN 81 MG CHEWABLE TABLET ONE (08:33)
[2020-03-07] MEDS ORDERED: FUROSEMIDE 20 MG/ 2ML VIAL ONE (08:33)
[2020-03-07 08:43] LABS: Protime INR 1.06
[2020-03-07 08:45] LABS: Absolute Lymphocytes (CBC) 2.6 K/uL (0.7-4.9); Basophils % 0.8 % (0-1.3); Hematocrit 38.1 % (39.6-49.0); Lymphocytes % 26.6 % (15.3-44.8); MPV 10.4 fL (7.6-11.3); RBC Red Blood Cell Count 4.46 M/uL (4.33-5.43)
--- NOTE | 2020-03-07 08:57 | RAD REPORT ---
EXAM DESCRIPTION: Jolie Single View03/07/2020 8:51 am CLINICAL HISTORY: Shortness of breath COMPARISON: June 2019 FINDINGS: The lungs appear clear of acute infiltrate. The heart is normal size IMPRESSION: No acute abnormalities displayed
[2020-03-07 09:04] LABS: ALT/SGPT 21 U/L (12-78); AST/SGOT 12 U/L (15-37); Albumin 3.6 g/dL (3.4-5.0); Alkaline Phosphatase 106 U/L (45-117); BUN Blood Urea Nitrogen 18 mg/dL (7-18); Bicarbonate 30 mmol/L (21-32); Bilirubin Direct 0.2 mg/dL (0-0.2); Bilirubin Total 0.5 mg/dL (0.2-1.0); Glucose Level 98 mg/dL (74-106); Magnesium 2.3 mg/dL (1.8-2.4); NT PRO-BNP 26 pg/mL (<125); Protein, Total 8.1 g/dL (6.4-8.2); Sodium Level 138 mmol/L (136-145); Troponin (Emerg Dept Use Only) < 0.02 ng/mL (0.0-0.045)
[2020-03-07 09:34] LABS: Urine Blood NEGATIVE (NEG); Urine Glucose NEGATIVE (NEG); Urine Protein NEGATIVE (NEG); Urine pH 5.5 (5.0-7.0)
[2020-03-07 10:29] LABS: SARS-COV-2 RT PCR NEGATIVE (NEGATIVE)
--- NOTE | 2020-03-07 11:02 | EDPHYS ---
Physician Documentation [facility] Name: Denys Juarez Age: 59 yrs Sex: Male : 1960 Arrival Date: 03/07/2020 Time: 07:55 Bed 6 Private MD: ED Physician Yuri Lee HPI: 03/07 08:37 This 59 yrs old Male presents to ER via Ambulatory with complaints of Chest azfar Pain, Shortness Of Breath. 08:37 The patient or guardian reports chest pain that is located primarily in the substernal zafar area. Onset: this morning, last night. The pain does not radiate. Associated signs and symptoms: Pertinent positives: shortness of breath. The chest pain is described as a pressure, squeezing. Duration: The patient or guardian reports a single episode, that is now resolved. Modifying factors: The symptoms are alleviated by nothing. the symptoms are aggravated by nothing. Severity of pain: At its worst the pain was mild in the emergency department the pain is unchanged. The patient has experienced similar episodes in the past, multiple times. Historical: - Allergies: 08:13 No Known Allergies; jl7 - Home Meds: 08:13 pantoprazole 40 mg oral TbEC once daily [Active]; aspirin 81 mg Oral TbEC 1 tab once jl7 daily [Active]; carvedilol 12.5 mg oral tab 1 tab every 12 hours [Active]; Lasix 40 mg Oral tab 1 tab once daily [Active]; atorvastatin 40 mg oral tab 1 tab once daily [Active]; Entresto 97-103 mg oral tab 1 tab 2 times per day [Active]; - PMHx: 08:13 acid reflux; CHF; High Cholesterol; jl7 - Immunization history:: Adult Immunizations up to date. - Social history:: Smoking status: Patient denies any tobacco usage or history of. - Family history:: not pertinent. ROS: 08:37 Constitutional: Negative for fever, chills, and weight loss, Eyes: Negative for injury, zafar pain, redness, and discharge, ENT: Negative for injury, pain, and discharge, Neck: Negative for injury, pain, and swelling, Abdomen/GI: Negative for abdominal pain, nausea, vomiting, diarrhea, and constipation, Back: Negative for injury and pain, : Negative for injury, bleeding, discharge, and swelling, MS/Extremity: Negative for injury and deformity, Skin: Negative for injury, rash, and discoloration, Neuro: Negative for headache, weakness, numbness, tingling, and seizure, Psych: Negative for depression, anxiety, suicide ideation, homicidal ideation, and hallucinations, Allergy/Immunology: Negative for hives, rash, and allergies, Endocrine: Negative for neck swelling, polydipsia, polyuria, polyphagia, and marked weight changes, Hematologic/Lymphatic: Negative for swollen nodes, abnormal bleeding, and unusual bruising. 08:37 Cardiovascular: Positive for chest pain, orthopnea. 08:37 Respiratory: Positive for cough, shortness of breath, at rest. Exam: 08:37 Constitutional: This is a well developed, well nourished patient who is awake, alert, zafar and in no acute distress. Head/Face: Normocephalic, atraumatic. Eyes: Pupils equal round and reactive to light, extra-ocular motions intact. Lids and lashes normal. Conjunctiva and sclera are non-icteric and not injected. Cornea within normal limits. Periorbital areas with no swelling, redness, or edema. ENT: Nares patent. No nasal discharge, no septal abnormalities noted. Tympanic membranes are normal and external auditory canals are clear. Oropharynx with no redness, swelling, or masses, exudates, or evidence of obstruction, uvula midline. Mucous membranes moist. Neck: Trachea midline, no thyromegaly or masses palpated, and no cervical lymphadenopathy. Supple, full range of motion without nuchal rigidity, or vertebral point tenderness. No Meningismus. Chest/axilla: Normal chest wall appearance and motion. Nontender with no deformity. No lesions are appreciated. Cardiovascular: Regular rate and rhythm with a normal S1 and S2. No gallops, murmurs, or rubs. Normal PMI, no JVD. No pulse deficits. Respiratory: Lungs have equal breath sounds bilaterally, clear to auscultation and percussion. No rales, rhonchi or wheezes noted. No increased work of breathing, no retractions or nasal flaring. Abdomen/GI: Soft, non-tender, with normal bowel sounds. No distension or tympany. No guarding or rebound. No evidence of tenderness throughout. Back: No spinal tenderness. No costovertebral tenderness. Full range of motion. Male : Normal genitalia with no discharge or lesions. Skin: Warm, dry with normal turgor. Normal color with no rashes, no lesions, and no evidence of cellulitis. MS/ Extremity: Pulses equal, no cyanosis. Neurovascular intact. Full, normal range of motion. Neuro: Awake and alert, GCS 15, oriented to person, place, time, and situation. Cranial nerves II-XII grossly intact. Motor strength 5/5 in all extremities. Sensory grossly intact. Cerebellar exam normal. Normal gait. Psych: Awake, alert, with orientation to person, place and time. Behavior, mood, and affect are within normal limits. 08:44 ECG was reviewed by the Attending Physician. [facility] Vital Signs: 08:11 BP 116 / 70; Pulse 76; Resp 19; Pulse Ox 98% ; Weight 156.49 kg; Height 5 ft. 10 in. jl7 (177.80 cm); Pain 4/10; 08:37 BP 113 / 59; Pulse 71; Resp 17; Pulse Ox 95% ; jl7 09:13 BP 106 / 55; Pulse 69; Resp 16; Pulse Ox 96% ; jl7 10:32 BP 102 / 55; Pulse 72; Resp 15; Pulse Ox 97% ; jl7 11:00 BP 98 / 61; Pulse 68; Resp 15; Pulse Ox 96% ; Pain 0/10; jl7 08:11 Body Mass Index 49.50 (156.49 kg, 177.80 cm) 7 MDM: 08:03 Patient medically screened. zafar 08:39 Differential diagnosis: abnormal EKG, acute pericarditis, anxiety, Cholelithiasis zafar esophagitis, hiatal hernia, pancreatitis, peptic ulcer disease, pneumonia, pulmonary embolus, stable angina, unstable angina. HEART Score: History: Slightly Suspicious (0), ECG: Normal (0), Age: > 45 and < 65 years (1), Risk Factors: > or = 3 Risk factors for atherosclerotic disease (2), [Hypercholesterolemia] [Hypertension] [+ Family HX] [Obesity] Troponin: < or = 1 x Normal Limit (0). The patient was given aspirin in the Emergency Department. The patient's deep vein thrombosis risk score was calculated as follows: Total Score: 0. This patient was found to be at low risk for a deep vein thrombosis by using the Well's assessment criteria. The patient's pulmonary embolism risk score was calculated as follows: Total Score: 0-2 points. This patient was found to be at low risk for a pulmonary embolism by using the Well's assessment criteria. ERICA Risk Score: TOTAL SCORE = 0. Data reviewed: vital signs, nurses notes, lab test result(s), EKG, radiologic studies. Data interpreted: sheet rocker: rate is 76 beats/min, rhythm is regular, Pulse oximetry: on room air is 98 %. Test interpretation: by ED physician or midlevel provider: ECG, plain radiologic studies. 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 03/07 08:12 Order name: Basic Metabolic Panel; Complete Time: 09:10 [facility] 03/07 08:12 Order name: CBC with Diff; Complete Time: 09:10 [facility] 03/07 08:12 Order name: LFT's; Complete Time: 09: [facility] 03/07 08:12 Order name: Magnesium; Complete Time: 09: [facility] 03/07 08:12 Order name: NT PRO-BNP; Complete Time: 09:10 [facility] 03/07 08:12 Order name: PT-INR; Complete Time: 09: [facility] 03/07 08:12 Order name: Troponin (emerg Dept Use Only); Complete Time: 09:10 [facility] 03/07 08:12 Order name: XRAY Chest (1 view); Complete Time: 09:10 [facility] 03/07 08:12 Order name: D-Dimer; Complete Time: 09:10 [facility] 03/07 09:11 Order name: Troponin (emerg Dept Use Only): 1030 am; Complete Time: 10:59 [facility] 03/07 09:21 Order name: Urine Dipstick--Ancillary (enter results); Complete Time: 10:08 03/07 10:29 Order name: COVID-19/FLU A+B; Complete Time: 10:54 [facility] 03/07 08:12 Order name: EKG; Complete Time: 08:13 [facility] 03/07 08:12 Order name: Cardiac monitoring; Complete Time: 08:15 [facility] 03/07 08:12 Order name: EKG - Nurse/Tech; Complete Time: 08:16 [facility] 03/07 08:12 Order name: IV Saline Lock; Complete Time: [facility] 03/07 08:12 Order name: Labs collected and sent; Complete Time: [facility] 03/07 08:12 Order name: O2 Per Protocol; Complete Time: 08: [facility] 03/07 08:12 Order name: O2 Sat Monitoring; Complete Time: 08: [facility] 03/07 08:12 Order name: Urine Dipstick-Ancillary (obtain specimen); Complete Time: 09:12 [facility] EC:44 Rate is 75 beats/min. Rhythm is regular. QRS [place] is Normal. MI interval is normal. QRS zafar interval is normal. QT interval is normal. No Q waves. T waves are Normal. No ST changes noted. Clinical impression: Normal ECG and No evidence of ischemia. Interpreted by me. Reviewed by me. Administered Medications: 08:25 Drug: Lasix 20 mg Route: IVP; Site: right antecubital; [facility] 09:13 Follow up: Response: No adverse reaction [facility] 08:35 Drug: Aspirin 81 mg Route: PO; [facility] 09:13 Follow up: Response: No adverse reaction [facility] Disposition: 03/07/20 11:02 Discharged to Home. Impression: Chest pain, unspecified, Dyspnea, Obesity, unspecified, Systolic (congestive) heart failure. - Condition is Stable. - Discharge Instructions: Nonspecific Chest Pain, Obesity, Adult, Shortness of Breath, Shortness of Breath, [id number], Nonspecific Chest Pain, [id number], Aspirin and Your Heart. - Medication Reconciliation Form, Thank You Letter, Antibiotic Education, Prescription Opioid Use form. - Follow up: Private Physician; When: 1 - 2 days; Reason: Recheck today's complaints, Continuance of care, Re-evaluation by your physician. Follow up: Dajuan Aguilar; When: 2 - 3 days; Reason: Recheck today's complaints, Re-evaluation by your physician. - Problem is new. - Symptoms have improved. Signatures: Dispatcher [employer] EDYuri Long MD MD cha Leal, Jahala, RN RN jl7 Corrections: (The following items were deleted from the chart) 09:46 08:13 Influenza Screen (A \T\ B)+BA.LAB.BRZ ordered. [facility] 09:46 08:13 CORONAVIRUS+.BRZ ordered. [facility] EDMS 11:26 11:02 03/07/2020 11:02 Discharged to Home. Impression: Chest pain, unspecified; jl7 Dyspnea; Obesity, unspecified; Systolic (congestive) heart failure. Condition is Stable. Discharge Instructions: Nonspecific Chest Pain, Obesity, Adult, Shortness of Breath, Shortness of Breath, [id number], Nonspecific Chest Pain, [id number], Aspirin and Your Heart. Forms are Medication Reconciliation Form, Thank You Letter, Antibiotic Education, Prescription Opioid Use. Follow up: Private Physician; When: 1 - 2 days; Reason: Recheck today's complaints, Continuance of care, Re-evaluation by your physician. Follow up: Dajuan Aguilar; When: 2 - 3 days; Reason: Recheck today's complaints, Re-evaluation by your physician. Problem is new. Symptoms have improved. zafar
--- NOTE | 2020-03-07 11:02 | ER ---
Nurse's Notes [facility] Name: Denys Juarez Age: 59 yrs Sex: Male : 1960 Arrival Date: 03/07/2020 Time: 07:55 Bed 6 Private MD: Diagnosis: Chest pain, unspecified;Dyspnea;Obesity, unspecified;Systolic (congestive) heart failure Presentation: 03/07 08:11 Chief complaint: Patient states: Woke this morning at 0400 with chest pressure and SOB. jl7 Coronavirus screen: Client denies travel out of the [place] in the last 14 days. At this time, the client does not indicate any symptoms associated with coronavirus-19. Ebola Screen: No symptoms or risks identified at this time. Initial Sepsis Screen: Does the patient meet any 2 criteria? No. Patient's initial sepsis screen is negative. Does the patient have a suspected source of infection? No. Patient's initial sepsis screen is negative. Risk Assessment: Do you want to hurt yourself or someone else? Patient reports no desire to harm self or others. Onset of symptoms was March 07, 2020 at 04:00. Care prior to arrival: None. Transition of care: patient was not received from another setting of care. 08:11 Method Of Arrival: Ambulatory jl7 08:11 Acuity: MARGARETH 2 jl7 Triage Assessment: 08:13 General: Appears in no apparent distress. uncomfortable, Behavior is calm, cooperative, jl7 appropriate for age. Pain: Complains of pain in chest Pain does not radiate. Pain currently is 4 out of 10 on a pain scale. Quality of pain is described as pressure, Pain began 4 hours ago. Is continuous. Neuro: Level of Consciousness is awake, alert, obeys commands, Oriented to person, place, time, situation. Cardiovascular: Patient's skin is warm and dry. Rhythm is regular. Respiratory: Reports shortness of breath at rest Airway is patent Respiratory effort is even, unlabored, Respiratory pattern is regular, symmetrical. Derm: Skin is pink, warm \T\ dry. Historical: - Allergies: 08:13 No Known Allergies; jl7 - Home Meds: 08:13 pantoprazole 40 mg oral TbEC once daily [Active]; aspirin 81 mg Oral TbEC 1 tab once jl7 daily [Active]; carvedilol 12.5 mg oral tab 1 tab every 12 hours [Active]; Lasix 40 mg Oral tab 1 tab once daily [Active]; atorvastatin 40 mg oral tab 1 tab once daily [Active]; Entresto 97-103 mg oral tab 1 tab 2 times per day [Active]; - PMHx: 08:13 acid reflux; CHF; High Cholesterol; jl7 - Immunization history:: Adult Immunizations up to date. - Social history:: Smoking status: Patient denies any tobacco usage or history of. - Family history:: not pertinent. Screenin:35 Abuse screen: Denies threats or abuse. Denies injuries from another. Nutritional jl7 screening: No deficits noted. Tuberculosis screening: No symptoms or risk factors identified. Fall Risk IV access (20 points). Total T[place] Fall Scale indicates No Risk (0-24 pts). Assessment: 09:13 Reassessment: Patient appears in no apparent distress at this time. Patient and/or jl7 family updated on plan of care and expected duration. Pain level reassessed. Patient is alert, oriented x 3, equal unlabored respirations, skin warm/dry/pink. Reports pressure and SOB have improved Patient denies pain at this time. 10:32 Reassessment: Patient appears in no apparent distress at this time. No changes from [facility] previously documented assessment. Patient and/or family updated on plan of care and expected duration. Pain level reassessed. Patient is alert, oriented x 3, equal unlabored respirations, skin warm/dry/pink. Vital Signs: 08:11 BP 116 / 70; Pulse 76; Resp 19; Pulse Ox 98% ; Weight 156.49 kg; Height 5 ft. 10 in. jl7 (177.80 cm); Pain 4/10; 08:37 BP 113 / 59; Pulse 71; Resp 17; Pulse Ox 95% ; jl7 09:13 BP 106 / 55; Pulse 69; Resp 16; Pulse Ox 96% ; jl7 10:32 BP 102 / 55; Pulse 72; Resp 15; Pulse Ox 97% ; jl7 11:00 BP 98 / 61; Pulse 68; Resp 15; Pulse Ox 96% ; Pain 0/10; jl7 08:11 Body Mass Index 49.50 (156.49 kg, 177.80 cm) 7 ED Course: 07:55 Patient arrived in ED. as 08:03 Yuri Lee MD is Attending Physician. zafar 08:05 EKG done, by ED staff, reviewed by Yuri Lee MD. jl7 08:10 Venkata Núñez, RN is Primary Nurse. jl7 08:12 Triage completed. jl7 08:13 Arm band placed on right wrist. jl7 08:24 Initial lab(s) drawn, by me, sent to lab. COVID swab sent to lab. Flu and/or RSV swab jl7 sent to lab. Inserted saline lock: 20 gauge in right antecubital area, using aseptic technique. Blood collected. Patient maintains SpO2 saturation greater than 95% on room air. 08:35 Patient has correct armband on for positive identification. Placed in gown. Bed in low jl7 position. Call light in reach. Side rails up X 1. site monitor on. Pulse ox on. NIBP on. 08:51 XRAY Chest (1 view) In Process Unspecified. EDNJ 09:15 Urine collected: clean catch specimen, clear. jl7 10:32 Troponin (emerg Dept Use Only): 1030 am Sent. jl7 10:32 Repeat lab(s) drawn. by me, sent to lab. jl7 11:01 Dajuan Aguilar MD is Referral Physician. zafar 11:26 No provider procedures requiring assistance completed. IV discontinued, intact, jl7 bleeding controlled, No redness/swelling at site. Pressure dressing applied. Administered Medications: 08:25 Drug: Lasix 20 mg Route: IVP; Site: right antecubital; jl7 09:13 Follow up: Response: No adverse reaction jl7 08:35 Drug: Aspirin 81 mg Route: PO; jl7 09:13 Follow up: Response: No adverse reaction jl7 Outcome: 11:02 Discharge ordered by . zafar 11:26 Discharged to home ambulatory. jl7 11:26 Condition: stable 11:26 Discharge instructions given to patient, Instructed on discharge instructions, follow up and referral plans. Demonstrated understanding of instructions, follow-up care. 11:26 Patient left the ED. jl7 Signatures: Dispatcher [employer] Yuri Thompson MD MD cha Martinez, Amelia as Venkata Núñez, RN RN jl7
[2020-03-07 11:45] VITALS: BP 98/61; O2SAT 96
--- NOTE | 2020-03-07 17:14 | EKG ---
Test Date: 2020-03-07 Test Time: 08:05:12 Intelligence Support Officer: SOTO MEASUREMENT RESULTS: Intervals: Rate: 75 MD: 188 QRSD: 100 QT: 370 QTc: 413 [place]: P: 43 MD: 188 QRS: 17 T: 45 INTERPRETIVE STATEMENTS: Normal sinus rhythm Normal ECG Compared to ECG 07/13/2019 17:11:54 Fusion complex(es) no longer present Left bundle-branch block no longer present Electronically Signed On 03-07-20 17:12:48 REVENUE CYCLE SPECIALIST by Dajuan Aguilar
== END 2020-03-07 11:26 | disposition home or self-care (01) ==
LOC: ER 07:55
DX: I50.20 Unspecified systolic (congestive) heart failure (principal); R06.00 Dyspnea, unspecified; E66.9 Obesity, unspecified; E78.00 Pure hypercholesterolemia, unspecified; Z20.822 Contact with and (suspected) exposure to COVID-19; Z79.82 Long term (current) use of aspirin
CPT/HCPCS: 93005; 85025; 80048; 36415; 83735; 85610; 85379; 80076; 81003; 84484 ×2; 83880; 0240U; 71045; J1940; 96374; 99285

== ENCOUNTER 2024-02-09 22:18 | Emergency (ER) | payer BC ==
--- OUTSIDE RECORDS SUMMARY | 2024-02-09 22:23 | XMS REPORT | Continuity of Care Document ---
Author Name Unknown Address [address] [facility] [address] [place] [address] [facility] Address [address] [facility] [place] [address] Care Team Providers Care Wad Lubricator Name Role Phone ALVARADO SULLIVAN Primary Care Physician NHUNG Mann Attending Clinician ALVARADO Delcid Attending Clinician Bin Santana Attending Clinician Jarvis Peters Attending Clinician [phone] Unknown, Attending Attending Clinician JARVIS Ibarra Attending Clinician UnavailAlvarado Burks MD Attending Clinician + [phone] MARGARET OSEGUERA Attending Clinician UnavailMargaret Tate Attending Clinician [phone] Unknown, Attending Attending Clinician [facility] Unassigned, [place] Attending Clinician Alvarado Murry MD Attending Clinician + [phone] Refugio Santana Attending Clinician Unavailable Nhung Rodriguez MD Attending Clinician + [phone] Andres Britt Attending Clinician Unavailable Sandip Barfield MD Attending Clinician [phone] , Adc Surg Spec Procedure Attending Clinician Unavailable SANDIP BARFIELD Attending Clinician Unavailable Francoise Quiñones Attending Clinician NHUNG RODRIGUEZ Admitting Clinician Andres Blair Admitting Clinician Unavailable Nhung Rodriguez MD Admitting Clinician [phone] Payers Payer Name Policy Type Policy Number Effective Date Expirati on Date Source [facility] [id number] 2016 00:00:00 Problems Condition Name Condition Details Condition Category Status Onset Date Resolution Date Last Treatment Date Treating Clinician Comments Source Morbid obesity with body mass index of 40.0-49.9 Morbid obesity with body mass index of 40.0-49.9 Disease Active 11-06 00:00: 00 [facility] Acute on chronic systolic congestive heart failure Acute on chronic systolic congestive heart failure Disease Active 07-18 00:00: 00 [facility] History of colonic polyps History of colonic polyps Disease Active 10-18 00:00: 00 [facility] Gastroesop hageal reflux disease without esophagiti s Gastroesop hageal reflux disease without esophagiti s Disease Active 2014-02 00:00: 00 [facility] Allergies, Adverse Reactions, Alerts Allergy Name Allergy Type Status Severity Reaction(s) Onset Date Inactive Date Treating Clinician Comments Source No Known Allergie s DA Active U 08-16 00:00: 00 [facility] No Known Drug Intolera nces DA Active U 03-09 00:00: 00 [facility] No Known Contrast Allergie s DA Active U 03-08 00:00: 00 [facility] No Known Drug Allergie s DA Active U 03-08 00:00: 00 [facility] No Known Food Allergie s DA Active U 03-08 00:00: 00 [facility] No Known Other Allergie s DA Active U 03-08 00:00: 00 [facility] NO KNOWN ALLERGIE S Drug Class Active [facility] Social History Social Habit Start Date Stop Date Quantity Comments Source Gender identity [facility] Sexual orientation [facility] Alcoholic beverage intake 2023-12-03 00:00:00 2023-12-03 00:00:00 .57 /d [facility] History of Social function 2023-12-03 00:00:00 2023-12-03 00:00:00 [facility] Cigarettes smoked current (pack per day) - Reported 2023-07-15 00:00:00 2023-07-15 00:00:00 [facility] Cigarette pack-years 2023-07-15 00:00:00 2023-07-15 00:00:00 [facility] Tobacco use and exposure 2023-07-15 00:00:00 2023-07-15 00:00:00 Smokeless tobacco non-user [facility] Alcohol intake 2023-05-28 00:00:00 2023-05-28 00:00:00 .57 /d [facility] Exposure to SARS-CoV-2 (event) 2022-03-30 00:00:00 2022-04-09 10:04:00 Not sure [facility] History of tobacco use 1976-02-02 00:00:00 1996-02-02 00:00:00 Cigarette Smoker [facility] Sex assigned at 1960 00:00:00 1960 00:00:00 [facility] Smoking Status Start Date Stop Date Source Ex-smoker 2023-07-15 00:00:00 2023-07-15 00:00:00 [facility] Medications Ordered Medication Name Filled Medication Name Start Date Stop Date Current Medication? Ordering Clinician Indication Dosage Frequency Signature (SIG) Comments Components Source methylPREDN ISolone (MEDROL, WILLIAM,) 4 mg tablets 2023-02 00:00: 00 Yes [id number] Take by mouth SEE-INSTRU CTIONS. follow package directions [facility] benzonatate 200 mg capsule 2023-02 00:00: 00 02-05 05:59 :00 Yes [id number] 200mg Take 1 capsule by mouth 3 (three) times daily as needed for Cough for up to 10 days. [facility] amoxicillin -clavulanat e (AUGMENTIN) 875-125 mg per tablet 2023-02 2-09 00:00: 00 02-02 05:59 :00 Yes [id number] 1{tbl} Take 1 tablet by mouth in the morning and 1 tablet in the evening. Do all this for 7 days. [facility] semaglutide (OZEMPIC) 0.25 mg or 0.5 mg (2 mg/3 mL) PnIj 2023-02 016 14:08: 45 Yes .5mg inject 0.5 mg under the skin weekly. [facility] spironolact one 25 mg tablet 2023-02 14:06: 47 Yes 25mg Take 1 tablet by mouth in the morning. [facility] metoprolol tartrate 50 mg tablet 2023-02 0 14:06: 47 Yes 50mg Take 1 tablet by mouth in the morning and 1 tablet in the evening. [facility] dapaglifloz in propanediol (FARXIGA) 10 mg tablet 2023-02 14:06: 47 Yes 10mg Take 1 tablet by mouth in the morning. [facility] pantoprazol e 40 mg EC tablet 2023-02 00:00: 00 Yes [id number] 40mg Take 1 tablet by mouth at bedtime. [facility] pantoprazol e 40 mg EC tablet 8-23 00:00: 00 12-02 00:00 :00 No [id number] 40mg Take 1 tablet by mouth at bedtime. [facility] benzonatate 200 mg capsule 07-14 00:00: 00 07-25 04:59 :00 No [id number] 200mg Take 1 capsule by mouth 3 (three) times daily as needed for Cough for up to 10 days. [facility] azithromyci n 250 mg tablet 07-14 00:00: 00 07-20 04:59 :00 No [id number] Take 2 tablets by mouth daily for 1 day, THEN 1 tablet daily for 4 days. [facility] furosemide (LASIX) 40 mg tablet 04-10 08:03: 53 Yes 40mg Take 1 tablet by mouth every morning and evening. [facility] sacubitriL- valsartan (ENTRESTO) 97-103 mg tablet 04-10 08:03: 53 Yes 1{tbl} Take 1 tablet by mouth in the morning and 1 tablet in the evening. [facility] Lactobacill us combo no.13 (PROBIOTIC PEARLS COMPLETE ORAL) 04-10 08:03: 53 Yes Take by mouth at bedtime. [facility] water for irrigation irrigation solution 11-06 15:25: 00 11-06 16:56 :01 No PRN, Starting on Fri11/06/22 at 1025, Until Fri11/06/22 at 1156, Routine, Intra-op [facility] simethicone (GAS RELIEF (SIMETHICON E)) 40 mg/0.6 mL drops 11-06 15:25: 00 11-06 16:56 :01 No PRN, Starting on Fri11/06/22 at 1025, Until Fri11/06/22 at 1156, Routine, Intra-op [facility] lactated ringers IV infusion 1,000 mL 11-06 15:00: 00 11-06 15:04 :00 No 1000mL at 42 mL/hr, 1,000 mL, IV Infusion, ONCE, 1 dose, On Fri11/06/22 at 1000, Routine, DSU Pre-op [facility] furosemide (LASIX) 40 mg tablet 11-06 12:54: 57 Yes 40mg Take 1 tablet by mouth every morning and evening. [facility] sacubitriL- valsartan (ENTRESTO) 97-103 mg tablet 11-06 12:54: 57 Yes 1{tbl} Take 1 tablet by mouth in the morning and 1 tablet in the evening. [facility] Lactobacill us combo no.13 (PROBIOTIC PEARLS COMPLETE ORAL) 11-06 12:54: 57 Yes Take by mouth at bedtime. [facility] pantoprazol e 40 mg EC tablet 10-08 00:00: 00 10-09 00:00 :00 No [id number] 40mg Take 1 tablet by mouth in the morning. [facility] pantoprazol e 40 mg EC tablet 10-08 00:00: 00 10-08 00:00 :00 No [id number] 40mg Take 1 tablet by mouth in the morning. [facility] pantoprazol e 40 mg EC tablet 2020-02 00:00: 00 10-08 00:00 :00 No [id number] 40mg Take 1 tablet by mouth daily. [facility] sacubitriL- valsartan (ENTRESTO) 97-103 mg tablet 10-13 08:40: 04 Yes 1{tbl} Take 1 tablet by mouth in the morning and 1 tablet in the evening. [facility] furosemide (LASIX) 40 mg tablet 10-17 10:33: 40 Yes 40mg Take 1 tablet by mouth every morning and evening. [facility] pantoprazol e 40 mg EC tablet 10-17 00:00: 00 11-20 00:00 :00 No [id number] 40mg Take 1 tablet by mouth daily. [facility] ENTRESTO 49-51 mg tablet 8-13 00:00: 00 10-13 00:00 :00 No 1{tbl} Take 1 tablet by mouth 2 (two) times daily. [facility] carvediloL 12.5 mg tablet 6-04 00:00: 00 12-02 00:00 :00 No 12.5mg Take 1 tablet by mouth in the morning and 1 tablet in the evening. [facility] atorvastati n 40 mg tablet 07-14 00:00: 00 Yes TK 1 T PO QHS [facility] aspirin 81 mg chewable tablet 07-14 00:00: 00 Yes MEASUREMENT AND VERIFICATION ENGINEER ONE T QD [facility] Immunizations Ordered Immunization Name Filled Immunization Name Date Status Comments Source SARS-COV-2 COVID-19 VACCINE, BIVALENT (MODERNA BOOSTER) 2021-12-15 00:00:00 Completed [facility] SARS-COV-2 COVID-19 VACCINE - (MODERNA) 2020-12-11 00:00:00 Completed SARS-COV-2 COVID-19 MODERNA 12+ YRS VACCINE 2020-04-22 00:00:00 Completed SARS-COV-2 COVID-19 MODERNA VACCINE 2020-04-22 00:00:00 Completed [facility] SARS-COV-2 COVID-19 MODERNA 12+ YRS VACCINE 2020-04-22 00:00:00 Completed [facility] SARS-COV-2 COVID-19 MODERNA 12+ YRS VACCINE 2020-04-22 00:00:00 Completed [facility] SARS-COV-2 COVID-19 MODERNA 12+ YRS VACCINE 2020-04-22 00:00:00 Completed [facility] SARS-COV-2 COVID-19 MODERNA 12+ YRS VACCINE 2020-04-22 00:00:00 Completed [facility] SARS-COV-2 COVID-19 MODERNA 12+ YRS VACCINE 2020-04-22 00:00:00 Completed [facility] SARS-COV-2 COVID-19 MODERNA 12+ YRS VACCINE 2020-04-22 00:00:00 Completed [facility] SARS-COV-2 COVID-19 MODERNA 12+ YRS VACCINE 2020-03-28 00:00:00 Completed SARS-COV-2 COVID-19 MODERNA VACCINE 2020-03-28 00:00:00 Completed [facility] SARS-COV-2 COVID-19 MODERNA 12+ YRS VACCINE 2020-03-28 00:00:00 Completed [facility] SARS-COV-2 COVID-19 MODERNA 12+ YRS VACCINE 2020-03-28 00:00:00 Completed [facility] SARS-COV-2 COVID-19 MODERNA 12+ YRS VACCINE 2020-03-28 00:00:00 Completed [facility] SARS-COV-2 COVID-19 MODERNA 12+ YRS VACCINE 2020-03-28 00:00:00 Completed [facility] SARS-COV-2 COVID-19 MODERNA 12+ YRS VACCINE 2020-03-28 00:00:00 Completed [facility] SARS-COV-2 COVID-19 MODERNA 12+ YRS VACCINE 2020-03-28 00:00:00 Completed [facility] Influenza Virus Vaccine - Whole 2018-11-17 00:00:00 Completed [facility] Influenza Virus Vaccine - Whole 2018-11-17 00:00:00 Completed [facility] Influenza Virus Vaccine - Whole 2018-11-17 00:00:00 Completed [facility] Influenza Virus Vaccine - Whole 2018-11-17 00:00:00 Completed [facility] Influenza Virus Vaccine - Whole 2018-11-17 00:00:00 Completed [facility] Influenza Virus Vaccine - Whole 2018-11-17 00:00:00 Completed [facility] Influenza Virus Vaccine - Whole 2018-11-17 00:00:00 Completed [facility] Influenza Virus Vaccine - Whole 2018-11-17 00:00:00 Completed [facility] Influenza Virus Vaccine - Whole Unknown Completed [facility] SARS-COV-2 COVID-19 MODERNA 12+ YRS VACCINE Unknown Completed [facility] SARS-COV-2 COVID-19 VACCINE, BIVALENT (MODERNA BOOSTER) Unknown Completed [facility] Influenza Virus Vaccine - Whole Unknown Completed [facility] SARS-COV-2 COVID-19 MODERNA 12+ YRS VACCINE Unknown Completed [facility] SARS-COV-2 COVID-19 VACCINE, BIVALENT (MODERNA BOOSTER) Unknown Completed [facility] Influenza Virus Vaccine - Whole Unknown Completed [facility] SARS-COV-2 COVID-19 MODERNA 12+ YRS VACCINE Unknown Completed [facility] SARS-COV-2 COVID-19 VACCINE, BIVALENT (MODERNA BOOSTER) Unknown Completed [facility] Influenza Virus Vaccine - Whole Unknown Completed [facility] SARS-COV-2 COVID-19 MODERNA 12+ YRS VACCINE Unknown Completed [facility] SARS-COV-2 COVID-19 VACCINE, BIVALENT (MODERNA BOOSTER) Unknown Completed [facility] Influenza Virus Vaccine - Whole Unknown Completed [facility] SARS-COV-2 COVID-19 MODERNA 12+ YRS VACCINE Unknown Completed [facility] SARS-COV-2 COVID-19 VACCINE, BIVALENT (MODERNA BOOSTER) Unknown Completed [facility] Influenza Virus Vaccine - Whole Unknown Completed [facility] SARS-COV-2 COVID-19 MODERNA 12+ YRS VACCINE Unknown Completed [facility] SARS-COV-2 COVID-19 VACCINE, BIVALENT (MODERNA BOOSTER) Unknown Completed [facility] Influenza Virus Vaccine - Whole Unknown Completed [facility] SARS-COV-2 COVID-19 MODERNA 12+ YRS VACCINE Unknown Completed [facility] SARS-COV-2 COVID-19 VACCINE, BIVALENT (MODERNA BOOSTER) Unknown Completed [facility] Influenza Virus Vaccine - Whole Unknown Completed [facility] SARS-COV-2 COVID-19 MODERNA 12+ YRS VACCINE Unknown Completed [facility] SARS-COV-2 COVID-19 VACCINE, BIVALENT (MODERNA BOOSTER) Unknown Completed [facility] Influenza Virus Vaccine - Whole Unknown Completed [facility] SARS-COV-2 COVID-19 MODERNA 12+ YRS VACCINE Unknown Completed [facility] Influenza Virus Vaccine - Whole Unknown Completed [facility] SARS-COV-2 COVID-19 MODERNA 12+ YRS VACCINE Unknown Completed [facility] Influenza Virus Vaccine - Whole Unknown Completed [facility] SARS-COV-2 COVID-19 MODERNA 12+ YRS VACCINE Unknown Completed [facility] Influenza Virus Vaccine - Whole Unknown Completed [facility] SARS-COV-2 COVID-19 MODERNA 12+ YRS VACCINE Unknown Completed [facility] Influenza Virus Vaccine - Whole Unknown Completed [facility] SARS-COV-2 COVID-19 MODERNA 12+ YRS VACCINE Unknown Completed [facility] Influenza Virus Vaccine - Whole Unknown Completed [facility] SARS-COV-2 COVID-19 MODERNA 12+ YRS VACCINE Unknown Completed [facility] Influenza Virus Vaccine - Whole Unknown Completed [facility] Influenza Virus Vaccine - Whole Unknown Completed [facility] SARS-COV-2 COVID-19 MODERNA 12+ YRS VACCINE Unknown Completed [facility] Influenza Virus Vaccine - Whole Unknown Completed [facility] SARS-COV-2 COVID-19 MODERNA 12+ YRS VACCINE Unknown Completed [facility] SARS-COV-2 COVID-19 VACCINE, BIVALENT (MODERNA BOOSTER) Unknown Completed [facility] Influenza Virus Vaccine - Whole Unknown Completed [facility] SARS-COV-2 COVID-19 MODERNA 12+ YRS VACCINE Unknown Completed [facility] SARS-COV-2 COVID-19 VACCINE, BIVALENT (MODERNA BOOSTER) Unknown Completed [facility] Influenza Virus Vaccine - Whole Unknown Completed [facility] SARS-COV-2 COVID-19 VACCINE, BIVALENT (MODERNA BOOSTER) Unknown Completed [facility] SARS-COV-2 COVID-19 MODERNA 12+ YRS VACCINE Unknown Completed [facility] Influenza Virus Vaccine - Whole Unknown Completed [facility] SARS-COV-2 COVID-19 MODERNA 12+ YRS VACCINE Unknown Completed [facility] SARS-COV-2 COVID-19 VACCINE, BIVALENT (MODERNA BOOSTER) Unknown Completed [facility] Influenza Virus Vaccine - Whole Unknown Completed [facility] SARS-COV-2 COVID-19 MODERNA 12+ YRS VACCINE Unknown Completed [facility] SARS-COV-2 COVID-19 VACCINE, BIVALENT (MODERNA BOOSTER) Unknown Completed [facility] Influenza Virus Vaccine - Whole Unknown Completed [facility] SARS-COV-2 COVID-19 MODERNA 12+ YRS VACCINE Unknown Completed [facility] SARS-COV-2 COVID-19 VACCINE, BIVALENT (MODERNA BOOSTER) Unknown Completed [facility] Vital Signs Vital Name Observation Time Observation Value Comments S ource Systolic blood pressure 2024-01-26 16:17:00 108 mm[Hg] [facility] Diastolic blood pressure 2024-01-26 16:17:00 71 mm[Hg] [facility] Heart rate 2024-01-26 16:17:00 84 /min [facility] Body temperature 2024-01-26 16:17:00 36.89 Lizzette [facility] Respiratory rate 2024-01-26 16:17:00 20 /min [facility] Body weight 2024-01-26 16:17:00 143.337 kg [facility] BMI 2024-01-26 16:17:00 44.07 kg/m2 [facility] Oxygen saturation in Arterial blood by Pulse oximetry 2024-01-26 16:17:00 96 /min [facility] Systolic blood pressure 2023-12-03 18:58:00 97 mm[Hg] [facility] Diastolic blood pressure 2023-12-03 18:58:00 62 mm[Hg] [facility] Heart rate 2023-12-03 18:58:00 81 /min [facility] Body temperature 2023-12-03 18:58:00 36.61 Lizzette [facility] Body height 2023-12-03 18:58:00 180.3 cm [facility] Body weight 2023-12-03 18:58:00 144.697 kg [facility] BMI 2023-12-03 18:58:00 44.49 kg/m2 [facility] Systolic blood pressure 2023-07-15 16:47:00 115 mm[Hg] [facility] Diastolic blood pressure 2023-07-15 16:47:00 69 mm[Hg] [facility] Heart rate 2023-07-15 16:47:00 75 /min [facility] Body temperature 2023-07-15 16:47:00 36.83 Lizzette [facility] Respiratory rate 2023-07-15 16:47:00 20 /min [facility] Body height 2023-07-15 16:47:00 180.3 cm [facility] Body weight 2023-07-15 16:47:00 149.596 kg [facility] BMI 2023-07-15 16:47:00 46.00 kg/m2 [facility] Oxygen saturation in Arterial blood by Pulse oximetry 2023-07-15 16:47:00 95 /min [facility] Systolic blood pressure 2023-05-28 18:00:00 115 mm[Hg] [facility] Diastolic blood pressure 2023-05-28 18:00:00 69 mm[Hg] [facility] Heart rate 2023-05-28 18:00:00 69 /min [facility] Body temperature 2023-05-28 18:00:00 36.78 Lizzette [facility] Body height 2023-05-28 18:00:00 180.3 cm [facility] Body weight 2023-05-28 18:00:00 151.048 kg [facility] BMI 2023-05-28 18:00:00 46.44 kg/m2 [facility] Systolic blood pressure 2023-04-10 14:01:00 113 mm[Hg] [facility] Diastolic blood pressure 2023-04-10 14:01:00 56 mm[Hg] [facility] Heart rate 2023-04-10 14:01:00 74 /min [facility] Body height 2023-04-10 14:01:00 180.3 cm [facility] Body weight 2023-04-10 14:01:00 155.584 kg [facility] BMI 2023-04-10 14:01:00 47.84 kg/m2 [facility] Systolic blood pressure 2022-11-06 17:20:00 101 mm[Hg] [facility] Diastolic blood pressure 2022-11-06 17:20:00 54 mm[Hg] [facility] Oxygen saturation in Arterial blood by Pulse oximetry 2022-11-06 17:20:00 95 /min [facility] Respiratory rate 2022-11-06 17:15:00 13 /min [facility] Heart rate 2022-11-06 16:57:00 63 /min [facility] Body temperature 2022-11-06 16:49:00 36.61 Lizzette [facility] Body height 2022-10-29 15:30:00 177.8 cm [facility] Body weight 2022-10-29 15:30:00 152.409 kg [facility] BMI 2022-10-29 15:30:00 48.21 kg/m2 [facility] Systolic blood pressure 2022-11-06 14:53:00 112 mm[Hg] [facility] Diastolic blood pressure 2022-11-06 14:53:00 54 mm[Hg] [facility] Heart rate 2022-11-06 14:53:00 63 /min [facility] 2022-11-06 14:53:00 36.5 Lizzette [facility] Respiratory rate 2022-11-06 14:53:00 19 /min [facility] Body height 2022-10-29 15:30:00 177.8 cm [facility] Body weight 2022-10-29 15:30:00 152.409 kg [facility] BMI 2022-10-29 15:30:00 48.21 kg/m2 [facility] Systolic blood pressure 2022-10-08 15:40:00 118 mm[Hg] [facility] Diastolic blood pressure 2022-10-08 15:40:00 70 mm[Hg] [facility] Heart rate 2022-10-08 15:40:00 92 /min [facility] Body temperature 2022-10-08 15:40:00 36.89 Lizzette [facility] Body height 2022-10-08 15:40:00 177.8 cm [facility] Body weight 2022-10-08 15:40:00 152.409 kg [facility] BMI 2022-10-08 15:40:00 48.21 kg/m2 [facility] Systolic blood pressure 2022-04-10 19:01:00 100 mm[Hg] [facility] Diastolic blood pressure 2022-04-10 19:01:00 62 mm[Hg] [facility] Heart rate 2022-04-10 19:01:00 71 /min [facility] Body height 2022-04-10 19:01:00 177.8 cm [facility] Body weight 2022-04-10 19:01:00 150.594 kg Univ [facility] BMI 2022-04-10 19:01:00 47.64 kg/m2 [facility] Systolic blood pressure 2021-10-08 18:01:00 114 mm[Hg] [facility] Diastolic blood pressure 2021-10-08 18:01:00 53 mm[Hg] [facility] Heart rate 2021-10-08 18:01:00 69 /min [facility] Body height 2021-10-08 18:01:00 180.3 cm [facility] Body weight 2021-10-08 18:01:00 152.409 kg [facility] BMI 2021-10-08 18:01:00 46.86 kg/m2 [facility] Procedures Procedure Date / Time Performed Performing Clinician Source POCT MOLECULAR FLU 2024-01-26 16:26:00 Unknown, Attend ing [facility] EXTERNAL PROVIDER RECORDS 2022-12-05 05:01:00 Doctor Unassigned, [place] [facility] [facility] 2022-11-06 16:08:00 Nhung Rodriguez [facility] COLONOSCOPY (ENDO) 2022-11-06 16:00:33 Alvarado Sullivan [facility] COLONOSCOPY (ENDO) 2022-11-06 16:00:33 Alvarado Sullivan [facility] DAY SURGERY - ADC 2022-11-06 05:01:00 Doctor Mica ssigned, [place] [facility] EXTERNAL PROVIDER RECORDS 2022-10-11 05:01:00 Doctor Unassigned, [place] [facility] EXTERNAL PROVIDER RECORDS 2022-09-30 05:01:00 Doctor Unassigned, [place] [facility] EXTERNAL PROVIDER RECORDS 2022-09-30 05:01:00 Doctor Unassigned, [place] [facility] REFERRAL- REQUEST/RESPONSE 2022-05-28 05:01:00 Doctor Unassigned, [place] [facility] Encounters Start Date/Time End Date/Time Encounter Type Admission Type Attending Clinicians Care Facility Care Department Encounter ID Source 2022-06-07 16:12:54 Outpatient R NHUNG WILIKNSON [facility] [id number] [facility] 2024-02-03 06:07:00 2024-02-03 06:07:00 Outpatient Bin Motta [facility] [id number] [facility] 2024-01-26 10:00:00 2024-01-26 10:20:00 Urgent Care Jarvis Lieberman Benjamin, Attending [facility] 1.2.840.114 350.1.13.10 4.2.7.2.686 [id number] [facility] 2024-01-26 10:00:00 2024-01-26 10:00:00 Outpatient R CARMEL JARVIS [facility] [id number] [facility] 2023-12-26 00:00:00 2023-12-26 13:04:10 Letter (Out) COUNT INCLUDES THE [facility] ([facility]) 1.2.840.114 350.1.13.10 4.2.7.2.686 [id number] [facility] 2023-12-26 00:00:00 2023-12-26 12:14:26 Letter (Out) COUNT INCLUDES THE [facility] ([facility]) 1.2.840.114 350.1.13.10 4.2.7.2.686 [id number] 019 [id number] [facility] 2023-12-25 00:00:00 2023-12-25 11:04:56 Telephone Alvarado Sullivan [facility] 1.2.840.114 350.1.13.10 4.2.7.2.686 [id number] [facility] 2023-12-03 14:00:00 2023-12-03 14:39:03 Office Visit Alvarado Sullivan [facility] 1.2.840.114 350.1.13.10 4.2.7.2.686 [id number] 044 [id number] [facility] 2023-12-03 14:00:00 2023-12-03 14:39:03 Outpatient R ALVARADO SULLIVAN [facility] [id number] [facility] 2023-10-10 00:00:00 2023-10-10 10:23:01 Refill Geetalinda Alvarado [facility] 1.284.114 350.1.13.10 4.2.7.2.686 [id number] 044 [id number] [facility] 2023-07-15 11:20:00 2023-07-15 12:36:06 Outpatient R MARGARET OSEGUERA [facility] [id number] [facility] 2023-07-15 11:20:00 2023-07-15 12:36:06 Urgent Care Margaret Oseguera Unknown, Attending [facility] 1.2114 350.1.13.10 4.2.7.2.686 [id number] [facility] 2023-05-30 00:00:00 2023-07-05 18:09:52 Patient Secure Msg Doctor Unassigned, [place] [facility] 1.2840.114 350.1.13.10 4.2.7.2.686 [id number] 019 [id number] [facility] 2023-06-20 00:00:00 2023-06-20 00:00:00 Letter (Out) [facility] 1.20.114 350.1.13.10 4.2.7.2.686 [id number] [facility] 2023-05-30 00:00:00 2023-05-30 00:00:00 Telephone Alvarado Sullivan [facility] 1.284.114 350.1.13.10 4.2.7.2.686 [id number] 044 [id number] [facility] 2023-05-29 00:00:00 2023-05-29 00:00:00 Telephone Alvarado Sullivan [facility] 1.2.840.114 350.1.13.10 4.2.7.2.686 [id number] 044 [id number] [facility] 2023-05-29 00:00:00 2023-05-29 00:00:00 Telephone Nate [facility] 1.2840.114 350.1.13.10 4.2.7.2.686 [id number] 044 [id number] [facility] 2023-05-28 13:15:00 2023-05-28 13:26:19 Outpatient R NATE [facility] [id number] [facility] 2023-05-28 13:15:00 2023-05-28 13:26:19 Office Visit Nate [facility] 1.840.114 350.1.13.10 4.2.7.2.686 [id number] 044 [id number] [facility] 2023-05-01 00:00:00 2023-05-01 00:00:00 Letter (Out) [facility] 1.2840.114 350.1.13.10 4.2.7.2.686 [id number] 019 [id number] [facility] 2023-05-01 00:00:00 2023-05-01 00:00:00 Letter (Out) [facility] 1.2840.114 350.1.13.10 4.2.7.2.686 [id number] [id number] [facility] 2023-04-10 08:45:00 2023-04-10 09:00:00 Back Closer Visit Lab, [facility] 1.2840.114 350.1.13.10 4.2.7.2.686 [id number] [facility] 2023-04-10 08:00:00 2023-04-10 08:16:02 Outpatient R ALVARADO SULLIVAN [facility] [id number] [facility] 2023-04-10 08:00:00 2023-04-10 08:15:00 Office Visit Alvarado Sullivan [facility] 1.2.840.114 350.1.13.10 4.2.7.2.686 [id number] 044 [id number] [facility] 2023-03-21 00:00:00 2023-03-21 00:00:00 Telephone Alvarado Sullivan [facility] 1.2840.114 350.1.13.10 4.2.7.2.686 [id number] 044 [id number] [facility] 2023-03-21 00:00:00 2023-03-21 00:00:00 Letter (Out) [facility] 1.2.840.114 350.1.13.10 4.2.7.2.686 [id number] [facility] 2022-12-05 00:00:00 2022-12-05 00:00:00 Orders Only Doctor Unassigned, [place] [facility] 1.2.840.114 350.1.13.10 4.2.7.2.686 [id number] [id number] [facility] 2022-11-06 09:47:00 2022-11-06 12:30:00 Outpatient R NHUNG WILKINSON [facility] [id number] [facility] 2022-11-06 09:47:00 2022-11-06 12:30:00 Hospital Encounter Nhung Wilkinson [facility] 1.2840.114 350.1.13.10 4.2.7.2.686 [id number] 071 [id number] [facility] 2022-11-06 11:05:00 2022-11-06 11:47:00 Surgery Nhung Wilkinson [facility] 1.2840.114 350.1.13.10 4.2.7.2.686 [id number] [facility] 2022-11-06 00:00:00 2022-11-06 00:00:00 Orders Only Doctor Unassigned, [place] [facility] 1.2840.114 350.1.13.10 4.2.7.2.686 [id number] [facility] 2022-10-11 00:00:00 2022-10-11 00:00:00 Orders Only Doctor Unassigned, [place] [facility] 1.2840.114 350.1.13.10 4.2.7.2.686 [id number] [facility] 2022-10-08 13:15:00 2022-10-08 13:15:00 Outpatient ALVARADO PICKARD [facility] [id number] [facility] 2022-10-08 11:00:00 2022-10-08 11:15:00 Office Visit Alvarado Sullivan [facility] 1.284.114 350.1.13.10 4.2.7.2.686 [id number] [facility] 2022-10-08 11:00:00 2022-10-08 11:00:00 Outpatient ALVARADO PICKARD [facility] [id number] [facility] 2022-08-19 12:18:00 2022-08-19 12:18:00 [id number] [facility] 2022-05-28 00:00:00 2022-05-28 00:00:00 Orders Only Doctor Unassigned, [place] [facility] 1.2840.114 350.1.13.10 4.2.7.2.686 [id number] [facility] 2022-04-10 13:30:00 2022-04-10 13:45:00 Back Closer Visit Lab, Refugio Saleem Alvarado Sullivan [facility] 1.2.840.114 350.1.13.10 4.2.7.2.686 [id number] [facility] 2022-04-10 13:00:00 2022-04-10 13:21:25 Outpatient R NATE [facility] [id number] [facility] 2022-04-10 13:00:00 2022-04-10 13:15:00 Office Visit Alvarado Sullivan [facility] 1..840.114 350.1.13.10 4.2.7.2.686 [id number] 044 [id number] [facility] 2021-11-09 15:53:00 2021-11-09 15:53:00 Outpatient Benjamin Barnett [facility] [id number] [place] [address] 2021-11-05 00:00:00 2021-11-05 00:00:00 Patient Secure Msg Alvarado Sullivan [facility] BUILDING 1..840.114 350.1.13.10 4.2.7.2.686 [id number] [facility] 2021-11-05 00:00:00 2021-11-05 00:00:00 Patient Secure Msg Doctor Unassigned, [place] [facility] 1..840.114 350.1.13.10 4.2.7.2.686 [id number] 044 [id number] [facility] 2021-11-02 00:00:00 2021-11-02 00:00:00 Patient Secure Msg Doctor Unassigned, [place] [facility] 1.2.840.114 350.1.13.10 4.2.7.2.686 [id number] [facility] 2021-10-08 13:00:00 2021-10-08 13:20:19 Outpatient ALVARADO PICKARD [facility] [id number] [facility] 2021-10-08 13:00:00 2021-10-08 13:15:00 Office Visit NateAlvarado [facility] 1.2.840.114 350.1.13.10 4.2.7.2.686 [id number] 044 [id number] [facility] 2021-10-08 13:00:00 2021-10-08 13:00:00 Outpatient Jose Maria SULLIVAN ALVARADO [facility] [id number] [facility] 2021-04-20 00:00:00 2021-04-20 00:00:00 Patient Secure Msg Doctor Unassigned, [place] [facility] 1.2.840.114 350.1.13.10 4.2.7.2.686 [id number] [id number] [facility] 2021-04-13 10:00:00 2021-04-13 10:00:00 Outpatient ALVARADO PICKARD [facility] [id number] [facility] 2021-04-09 15:15:00 2021-04-09 15:30:00 Office Visit Geetalinda [facility]ILD[facility] 1.2.840.114 350.1.13.10 4.2.7.2.686 [id number] 044 [id number] [facility] 2021-04-09 15:15:00 2021-04-09 15:15:00 Outpatient ALVARADO PICKARD [facility] [id number] [facility] 2021-04-09 15:15:00 2021-04-09 15:15:00 Outpatient R ALVARADO SULLIVAN [facility] [id number] [facility] 2020-12-11 08:40:51 2020-12-11 09:10:51 Office Visit Sandip Barfield Rm, Adc Surg Spec Procedure [facility] nal Building 1.840.114 350.1.13.10 4.2.7.2.686 [id number] [facility] 2020-12-11 09:00:00 2020-12-11 09:00:00 Outpatient R SANDIP BARFIELD [facility] [id number] [facility] 2020-12-11 00:00:00 2020-12-11 00:00:00 Orders Only Doctor Unassigned, [place] [facility] 1.840.114 350.1.13.10 4.2.7.2.686 [id number] [facility] 2020-12-08 00:00:00 2020-12-08 00:00:00 Telephone Sandip Barfield [facility] nal Building 1.840.114 350.1.13.10 4.2.7.2.686 [id number] [facility] 2020-11-24 00:00:00 2020-11-24 00:00:00 Patient Secure Msg Alvarado Sullivan [facility] Office Building One 1.84.114 350.1.13.10 4.2.7.2.686 [id number] 044 [id number] [facility] 2020-11-24 00:00:00 2020-11-24 00:00:00 Telephone Alvarado Sullivan [facility] 1.2840.114 350.1.13.10 4.2.7.2.686 [id number] 044 [id number] [facility] 2020-11-21 00:00:00 2020-11-21 00:00:00 Patient Secure Msg Carolyne Replaced by [facility] 1.2.840.114 350.1.13.10 4.2.7.2.686 [id number] [facility] 2020-11-20 12:39:59 2020-11-20 23:59:00 Hospital Encounter Carolyne [facility] 1.2.840.114 350.1.13.10 4.2.7.2.686 [id number] [facility] 2020-11-20 00:00:00 2020-11-20 00:00:00 Outpatient R CAROLYNE [facility] [id number] [facility] 2020-11-20 00:00:00 2020-11-20 00:00:00 lAvarado Florence [facility] Building 1.2.840.114 350.1.13.10 4.2.7.2.686 [id number] [facility] 2020-11-14 00:00:00 2020-11-14 00:00:00 Orders Only Doctor Unassigned, [place] [facility] 1.2.840.114 350.1.13.10 4.2.7.2.686 [id number] [id number] [facility] 2020-11-13 07:56:31 2020-11-13 08:44:40 [facility] 1.2.840.114 350.1.13.10 4.2.7.2.686 [id number] [facility] 2020-11-13 08:00:00 2020-11-13 08:00:00 Outpatient R BHARATIJOESPH [facility] [id number] [facility] 2020-11-02 00:00:00 2020-11-02 00:00:00 Orders Only Doctor Unassigned, [place] [facility] 1.114 350.1.13.10 4.2.7.2.686 [id number] [id number] [facility] 2020-10-13 08:56:40 2020-10-13 09:11:40 Back Closer Visit Lab, Francoise Cruz [facility] 1.114 350.1.13.10 4.2.7.2.686 [id number] [facility] 2020-10-13 08:10:57 2020-10-13 08:25:57 Office Visit Alvarado Sullivan [facility] 1.114 350.1.13.10 4.2.7.2.686 [id number] [id number] [facility] 2020-10-13 08:15:00 2020-10-13 08:15:00 Outpatient R ALVARADO SULLIVAN [facility] [id number] [facility] 2020-04-14 08:15:00 2020-04-14 08:15:00 Outpatient R ALVARADO SULLIVAN [facility] [id number] [facility] 2020-04-14 07:55:33 2020-04-14 08:10:33 Office Visit Alvarado Sullivan [facility] Office Building One .114 350.1.13.10 4.2.7.2.686 [id number] [id number] [facility] 2020-03-20 00:00:00 2020-03-20 00:00:00 Telephone Alvarado Sullivan [facility] Office Building One 1.114 350.1.13.10 4.2.7.2.686 [id number] 044 [id number] [facility] 2020-03-20 00:00:00 2020-03-20 00:00:00 Telephone Alvarado Sullivan [facility] Office Building One 1.2840.114 350.1.13.10 4.2.7.2.686 [id number] 044 [id number] [facility] 2020-02-15 00:00:00 2020-02-15 00:00:00 Patient Secure Msg Doctor Unassigned, [place] [facility] 1.20.114 350.1.13.10 4.2.7.2.686 [id number] [facility] 2019-10-18 10:15:00 2019-10-18 10:15:00 Outpatient R LOVEPHAMALVARADO [facility] [id number] [facility] 2019-10-18 09:58:54 2019-10-18 10:13:54 Office Visit NateAlvarado [facility] Building 1.2840.114 350.1.13.10 4.2.7.2.686 [id number] 044 [id number] [facility] 2019-10-18 09:58:54 2019-10-18 10:13:54 Office Visit Nate [facility] Building 1.2840.114 350.1.13.10 4.2.7.2.686 [id number] [id number] 2019-08-10 00:00:00 2019-08-10 00:00:00 Orders Only Doctor Unassigned, [place] [facility] 1.2840.114 350.1.13.10 4.2.7.2.686 [id number] [facility] 2019-07-29 00:00:00 2019-07-29 00:00:00 Orders Only Doctor Unassigned, [place] [facility] 1.2840.114 350.1.13.10 4.2.7.2.686 [id number] [facility] 2019-07-21 00:00:00 2019-07-21 00:00:00 Orders Only Doctor Unassigned, [place] [facility] 1.2.840.114 350.1.13.10 4.2.7.2.686 [id number] [id number] [facility] 2019-07-19 08:30:00 2019-07-19 08:30:00 Outpatient Jose Maria WILSONLINDAALVAARDO [facility] [id number] [facility] 2019-07-15 00:00:00 2019-07-15 00:00:00 Telephone NateAlvarado [facility] Building 1.2.840.114 350.1.13.10 4.2.7.2.686 [id number] 044 [id number] [facility] 2019-04-29 09:01:30 2019-04-29 09:28:57 Office Visit NateAlvarado [facility] Office Building One 1.2.840.114 350.1.13.10 4.2.7.2.686 [id number] [facility] 2019-04-29 09:15:00 2019-04-29 09:15:00 Outpatient Jose Maria NATEALVARADO [facility] [id number] [facility] Results Test Description Test Time Test Comments Results Result Co mments Source CBC W/AUTO [id number] 08:19:00* Test Item Value Reference Range Interpretation Comme nts WHITE BLOOD CELL (test code = WBC) 14.4 x10 3/uL 4.5-11.0 H RED BLOOD CELL (test code = RBC) 4.51 x10 6/uL 4.00-5.60 N HEMOGLOBIN (test code = HGB) 12.6 g/dL 12.5-16.9 N HEMATOCRIT (test code = HCT) 38.4 % 37.5-50.7 N MEAN CELL VOLUME (test code = MCV) 85.1 fL 81.0-99.0 N MEAN CELL HGB (test code = MCH) 27.9 pg 27.0-33.0 N MEAN CELL HGB CONCETRATION (test code = MCHC) 32.8 g/dL 33.0-37.0 L RED CELL DISTRIBUTION WIDTH CV (test code = RDW) 14.6 % 11.5-14.5 H RED CELL DISTRIBUTION WIDTH SD (test code = RDW-SD) 44.4 fL 37.0-54.0 N PLATELET COUNT (test code = PLT) 230 x10 3/uL 150-400 N IMMATURE PLATELET FRACTION (test code = IPF) 4.7 % 0.9-11.2 N MEAN PLATELET VOLUME (test code = MPV) 11.4 fL 7.0-9.0 H NEUTROPHIL % (test code = NT%) 72.1 % 56.0-77.0 N IMMATURE GRANULOCYTE % (test code = IG%) 0.3 % 0.0-2.0 N LYMPHOCYTE % (test code = LY%) 20.1 % 14.0-32.0 N MONOCYTE % (test code = MO%) 4.6 % 4.8-9.0 L EOSINOPHIL % (test code = EO%) 2.4 % 0.3-3.7 N BASOPHIL % (test code = BA%) 0.5 % 0.0-2.0 N NUCLEATED RBC % (test code = NRBC%) 0.0 % 0-0 N NEUTROPHIL # (test code = NT#) 10.35 x10 3/uL 2.0-7.6 H IMMATURE GRANULOCYTE # (test code = IG#) 0.05 x10 3/uL 0.00-0.03 H LYMPHOCYTE # (test code = LY#) 2.88 x10 3/uL 1.0-3.8 N MONOCYTE # (test code = MO#) 0.66 x10 3/uL 0.1-0.8 N EOSINOPHIL # (test code = EO#) 0.34 x10 3/uL 0.0-0.2 H BASOPHIL # (test code = BA#) 0.07 x10 3/uL 0.0-0.2 N NUCLEATED RBC # (test code = NRBC#) 0.00 x10 3/uL 0.0-0.1 N PROTHROMBIN [id number] 16:48:00* Test Item Value Reference Range Interpretation Comme nts PROTHROMBIN TIME PATIENT (test code = PTP) 13.7 SECONDS 9.3-12.9 H INTERNATIONAL NORMAL RATIO (test code = INR) 1.2 0.8-1.2 N TARGET INR BY INDICATION Indication INR1. Prophylaxis of venous thrombosis 2.0 - 3.0 (orthopedic surgery), Prophylaxis of venous thrombosis (other than high-risk surgery), Treatment of Deep Vein Thrombosis/Pulmonary Embolism, Prevention of systemic embolism - Tissue heart valves, Acute Myocardial Infarction (to prevent systemic embolism), Valvular heart disease, Atrial Fibrillation, Bileaflet mechanical valve in aortic position.2. Mechanical prosthetic valves (high risk), 2.5 - 3.5 Presence of Lupus Anticoagulant or Antiphospholipid Antibodies, Prevention of systemic embolism - Acute Myocardial Infarction (to prevent recurrent infarct). BASIC METABOLIC [id number] 16:38:00* Test Item Value Reference Range Interpretation Comme nts SODIUM (test code = NA) 138 mEq/L 134-147 N POTASSIUM (test code = K) 3.5 mEq/L 3.4-5.0 N CHLORIDE (test code = CL) 100 mEq/L 100-108 N CARBON DIOXIDE (test code = CO2) 31 mEq/l 21-33 N ANION GAP (test code = GAP) 11 0-20 N GLUCOSE (test code = GLU) 90 mg/dL 77-141 N BLOOD UREA NITROGEN (test code = BUN) 20 mg/dL 7-25 N GLOMERULAR FILTRATION RATE (test code = GFR) 68.8 80-90 L The Glomerular Filtration Rate is a calculated parameterbased on serum Creatinine, patient age and sex. GFR valuesless than 60 mL/min/1.73 square meters are indicative ofChronic Kidney Disease. Values less than 15 mL/min/1.73square meters indicate Kidney failure. The calculation forGFR is based on the CKD-EPI (2020) calculation. This formulais race indifferent and is the recommended formula for GFRby the National Kidney Foundation for Adults.The GFR will not calculate if the sex is unknown or if thepatient's age is <18 years. CREATININE (test code = CREAT) 1.2 mg/dL 0.6-1.3 N CALCIUM (test code = CA) 8.5 mg/dL 8.0-10.5 N CBC W/AUTO [id number] 16:17:00* Test Item Value Reference Range Interpretation Comme nts WHITE BLOOD CELL (test code = WBC) 16.2 x10 3/uL 4.5-11.0 H RED BLOOD CELL (test code = RBC) 4.71 x10 6/uL 4.00-5.60 N HEMOGLOBIN (test code = HGB) 13.2 g/dL 12.5-16.9 N HEMATOCRIT (test code = HCT) 40.5 % 37.5-50.7 N MEAN CELL VOLUME (test code = MCV) 86.0 fL 81.0-99.0 N MEAN CELL HGB (test code = MCH) 28.0 pg 27.0-33.0 N MEAN CELL HGB CONCETRATION (test code = MCHC) 32.6 g/dL 33.0-37.0 L RED CELL DISTRIBUTION WIDTH CV (test code = RDW) 14.6 % 11.5-14.5 H RED CELL DISTRIBUTION WIDTH SD (test code = RDW-SD) 45.4 fL 37.0-54.0 N PLATELET COUNT (test code = PLT) 260 x10 3/uL 150-400 N MEAN PLATELET VOLUME (test code = MPV) 11.4 fL 7.0-9.0 H NEUTROPHIL % (test code = NT%) 75.6 % 56.0-77.0 N IMMATURE GRANULOCYTE % (test code = IG%) 0.7 % 0.0-2.0 N LYMPHOCYTE % (test code = LY%) 17.5 % 14.0-32.0 N MONOCYTE % (test code = MO%) 5.6 % 4.8-9.0 N EOSINOPHIL % (test code = EO%) 0.2 % 0.3-3.7 L BASOPHIL % (test code = BA%) 0.4 % 0.0-2.0 N NUCLEATED RBC % (test code = NRBC%) 0.0 % 0-0 N NEUTROPHIL # (test code = NT#) 12.22 x10 3/uL 2.0-7.6 H IMMATURE GRANULOCYTE # (test code = IG#) 0.11 x10 3/uL 0.00-0.03 H LYMPHOCYTE # (test code = LY#) 2.83 x10 3/uL 1.0-3.8 N MONOCYTE # (test code = MO#) 0.91 x10 3/uL 0.1-0.8 H EOSINOPHIL # (test code = EO#) 0.04 x10 3/uL 0.0-0.2 N BASOPHIL # (test code = BA#) 0.07 x10 3/uL 0.0-0.2 N NUCLEATED RBC # (test code = NRBC#) 0.00 x10 3/uL 0.0-0.1 N POCT Molecular [id number] 16:38:37* Test Item Value Reference Range Interpretation Comme nts POCT Molecular FluA (test co de = 26291-4) Negative Negative POCT Molecular FluB (test co de = 16472-3) Negative Negative Lab Interpretation (test cod e = 83587-6) Normal [facility] METABOLIC [id number] 15:33:00* Test Item Value Reference Range Interpretation Comme nts SODIUM (test code = NA) 139 mEq/L 134-147 N POTASSIUM (test code = K) 4.3 mEq/L 3.4-5.0 N CHLORIDE (test code = CL) 102 mEq/L 100-108 N CARBON DIOXIDE (test code = CO2) 29 mEq/l 21-33 N ANION GAP (test code = GAP) 12 0-20 N GLUCOSE (test code = GLU) 142 mg/dL 70-110 H BLOOD UREA NITROGEN (test code = BUN) 17 mg/dL 7-18 N GLOMERULAR FILTRATION RATE (test code = GFR) 69.2 80-90 L The Glomerular Filtration Rate is a calculated parameterbased on serum Creatinine, patient age and sex. GFR valuesless than 60 mL/min/1.73 square meters are indicative ofChronic Kidney Disease. Values less than 15 mL/min/1.73square meters indicate Kidney failure. The calculation forGFR is based on the CKD-EPI (2020) calculation. This formulais race indifferent and is the recommended formula for GFRby the National Kidney Foundation for Adults.The GFR will not calculate if the sex is unknown or if thepatient's age is <18 years. CREATININE (test code = CREAT) 1.2 mg/dL 0.6-1.3 N CALCIUM (test code = CA) 9.0 mg/dL 8.0-10.5 N PROTHROMBIN [id number] 15:24:00* Test Item Value Reference Range Interpretation Comme nts PROTHROMBIN TIME PATIENT (test code = PTP) 13.8 SECONDS 9.3-12.9 H INTERNATIONAL NORMAL RATIO (test code = INR) 1.2 0.8-1.2 N TARGET INR BY INDICATION Indication INR1. Prophylaxis of venous thrombosis 2.0 - 3.0 (orthopedic surgery), Prophylaxis of venous thrombosis (other than high-risk surgery), Treatment of Deep Vein Thrombosis/Pulmonary Embolism, Prevention of systemic embolism - Tissue heart valves, Acute Myocardial Infarction (to prevent systemic embolism), Valvular heart disease, Atrial Fibrillation, Bileaflet mechanical valve in aortic position.2. Mechanical prosthetic valves (high risk), 2.5 - 3.5 Presence of Lupus Anticoagulant or Antiphospholipid Antibodies, Prevention of systemic embolism - Acute Myocardial Infarction (to prevent recurrent infarct). CBC W/AUTO [id number] 15:18:00* Test Item Value Reference Range Interpretation Comme nts WHITE BLOOD CELL (test code = WBC) 9.6 x10 3/uL 4.5-11.0 N RED BLOOD CELL (test code = RBC) 4.36 x10 6/uL 4.00-5.60 N HEMOGLOBIN (test code = HGB) 12.5 g/dL 12.5-16.9 N HEMATOCRIT (test code = HCT) 37.7 % 37.5-50.7 N MEAN CELL VOLUME (test code = MCV) 86.5 fL 81.0-99.0 N MEAN CELL HGB (test code = MCH) 28.7 pg 27.0-33.0 N MEAN CELL HGB CONCETRATION (test code = MCHC) 33.2 g/dL 33.0-37.0 N RED CELL DISTRIBUTION WIDTH CV (test code = RDW) 14.2 % 11.5-14.5 N PLATELET COUNT (test code = PLT) 211 x10 3/uL 150-400 N NEUTROPHIL % (test code = NT%) 66.6 % 56.0-77.0 N LYMPHOCYTE % (test code = LY%) 24.6 % 14.0-32.0 N NEUTROPHIL # (test code = NT#) 6.40 x10 3/uL 2.0-7.6 N LYMPHOCYTE # (test code = LY#) 2.36 x10 3/uL 1.0-3.8 N MANUAL DIFF REQUIRED (test c ode = MDIFF) NO RED CELL DISTRIBUTION WIDTH SD (test code = RDW-SD) 44.8 fL 37.0-54.0 N MEAN PLATELET VOLUME (test c ode = MPV) 12.0 fL 7.0-9.0 H IMMATURE GRANULOCYTE % (test code = IG%) 0.5 % 0.0-2.0 N MONOCYTE % (test code = MO%) 4.7 % 4.8-9.0 L EOSINOPHIL % (test code = EO%) 2.9 % 0.3-3.7 N BASOPHIL % (test code = BA%) 0.7 % 0.0-2.0 N NUCLEATED RBC % (test code = NRBC%) 0.0 % 0-0 N IMMATURE GRANULOCYTE # (test code = IG#) 0.05 x10 3/uL 0.00-0.03 H MONOCYTE # (test code = MO#) 0.45 x10 3/uL 0.1-0.8 N EOSINOPHIL # (test code = EO#) 0.28 x10 3/uL 0.0-0.2 H BASOPHIL # (test code = BA#) 0.07 x10 3/uL 0.0-0.2 N NUCLEATED RBC # (test code = NRBC#) 0.00 x10 3/uL 0.0-0.1 N - XR CHEST 2 [id number] 00:00:00 [facility] ANG[facility]LICA JUAREZ : 1960 Sex: M FAX: Andres Douglass MD [phone] [place]: [address]: PRE Name: ANGÉLICA JUAREZ [facility] Darci Frias : 1960 Age/S: 62/M [address] [place] [address] Unit #: [id number] Loc: [place] [address] Phys: Andres Britt MD Acct: [id number] Dis Date: Status: PRE SDC PHONE #: [phone] Exam Date: 08/16/2022 1458 FAX #: [phone] Reason: PRE OP EXAMS: CPT CODE: [id number] XR CHEST 2 V [id number] PROCEDURE INFORMATION: Exam: XR Chest Exam date and time: 08/16/2022 2:39 PM Age: 62 years old Clinical indication: Pre-operative exam; Respiratory screening exam; Additional info: Pre op TECHNIQUE: Imaging protocol:Radiologic exam of the chest. Views: 2 views. PA and Lateral COMPARISON: No relevant prior studies a vailable. FINDINGS: Lungs: There are normal lung volumes without consolidation or interstitial opacities. Pleural spaces: Unremarkable. No pleural effusion. No pneumothorax. Heart/Mediastinum: The heart size is normal. The pulmonary vasculature is normal. The mediastinal contour is normal. The trachea is midline. Bones/joints: No acute abnormality seen. IMPRESSION: No acute cardiopulmonary findings. at 1543 Reported and signed by: Stevan Sheppard M.D. CC: Andres Britt MD Technologist: RT Robert(R) Trnscrd Date/Time/By: 08/16/2022 ([id number]) : By: JaelynTDO Orig Print D/T: S: 08/16/2022 (3642) PAGE 1 Signed Report
[2024-02-09] MEDS ORDERED: NA CHLORIDE 0.9% 0 ML ONE (23:04)
[2024-02-09] MEDS ORDERED: FAMOTIDINE 20 MG/2 ML VIAL IV ONE (23:04)
[2024-02-10] MEDS ORDERED: LIDOCAINE VISCOUS 2% 10ML ORAL SOLN ONE (00:20)
[2024-02-10] MEDS ORDERED: MAGNES/ALUMIN/SIMET 30ML UCUP ONE (00:20)
--- NOTE | 2024-02-10 00:26 | ER ---
Nurse's Notes [facility] Name: Denys Juarez Age: 63 yrs Sex: Male : 1960 Arrival Date: 02/09/2024 Time: 22:18 Bed 11 Private MD: Diagnosis: Gastro-esophageal reflux disease without esophagitis Presentation: 02/08 22:29 Chief complaint: Patient states: SOB that started approx 1.5 hrs I feel bloated and vc1 have belched a few times. Coronavirus screen: Client denies travel out of the [place] in the last 14 days. At this time, the client does not indicate any symptoms associated with coronavirus-19. Ebola Screen: Patient negative for fever greater than or equal to 101.5 degrees Fahrenheit, and additional compatible Ebola Virus Disease symptoms Patient denies exposure to infectious person. Patient denies travel to an Ebola-affected area in the 21 days before illness onset. No symptoms or risks identified at this time. 22:29 Method Of Arrival: Ambulatory vc1 22:37 Acuity: MARGARETH 3 vc1 22:37 Initial Sepsis Screen: Does the patient meet any 2 criteria? No. Patient's initial vc1 sepsis screen is negative. Does the patient have a suspected source of infection? No. Patient's initial sepsis screen is negative. Risk Assessment: Do you want to hurt yourself or someone else? Patient reports no desire to harm self or others. Onset of symptoms was February 09, 2024. Triage Assessment: 22:35 General: Appears in no apparent distress. uncomfortable, obese, Behavior is calm, vc1 cooperative, appropriate for age. Pain: Denies pain. EENT: No deficits noted. No signs and/or symptoms were reported regarding the EENT system. Neuro: Level of Consciousness is awake, alert, obeys commands, Oriented to person, place, time, situation, Appropriate for age. Cardiovascular: Capillary refill < 3 seconds Patient's skin is warm and dry. Respiratory: Reports shortness of breath at rest Onset: The symptoms/episode began/occurred suddenly, the patient has mild shortness of breath. GI: Abdomen is round obese. : No deficits noted. No signs and/or symptoms were reported regarding the genitourinary system. Derm: Skin is intact, is healthy with good turgor, Skin is dry, Skin is normal, Skin temperature is warm. Musculoskeletal: Circulation, motion, and sensation intact. Range of motion: intact in all extremities. Historical: - Allergies: 22:33 No Known Allergies; vc1 - Immunization history:: Client reports having NOT received the Covid vaccine. Flu vaccine is up to date. - Infectious Disease History:: Denies. - Social history:: Smoking status: Patient/guardian denies using tobacco, but has a distant history of tobacco abuse. Screenin:34 [facility] ED Fall Risk Assessment (Adult) History of falling in the last 3 months, vc1 including since admission No falls in past 3 months (0 pts) Confusion or Disorientation No (0 pts) Intoxicated or Sedated No (0 pts) Impaired Gait No (0 pts) Mobility Assist Device Used No (0 pt) Altered Elimination No (0 pt) Score/Fall Risk Level 0 - 2 = Low Risk Oriented to surroundings, Maintained a safe environment, Educated pt \T\ family on fall prevention, incl call for assistance when getting out of bed. Abuse screen: Denies threats or abuse. Nutritional screening: No deficits noted. Tuberculosis screening: No symptoms or risk factors identified. Assessment: 02/09 00:33 Reassessment: Patient and/or family updated on plan of care and expected duration. Pain vc1 level reassessed. Patient denies pain at this time. Patient states feeling better. Patient states symptoms have improved. Cardiovascular: Rhythm is regular. Respiratory: Airway is patent Respiratory effort is even, unlabored, Respiratory pattern is regular, symmetrical, Breath sounds are clear bilaterally. Vital Signs: 02/08 22:29 BP 148 / 61; Pulse 89; Resp 18; Temp 98; Pulse Ox 97% ; Weight 142.88 kg; Height 5 ft. vc1 11 in. ; Pain 0/10; 22:29 Body Mass Index 43.93 (142.88 kg, 180.34 cm) vc1 22:29 Pain Scale: Adult vc1 ED Course: 22:19 Patient arrived in ED. [email or web address] 22:24 Shaila Mann FNP-C is PHCP. kb 22:24 Edgar Jacobson MD is Attending Physician. kb 22:34 Arm band placed on right wrist. vc1 22:37 Triage completed. vc1 22:55 Chest Single View XRAY In Process Unspecified. EDMS 12/24 00:32 No provider procedures requiring assistance completed. Patient did not have IV access vc1 during this emergency room visit. 00:33 Patient has correct armband on for positive identification. Bed in low position. Call vc1 light in reach. Provided Education on: continue protonix. Administered Medications: 00:24 Not Given (Physician Discretion): [id number] mg IVP once; dilute with 10 mL 0.9% vc1 NaCl; give over 2 minutes 00:24 Not Given (Physician Discretion): ns 0.9% 1000 ml IV at 1 bolus Per protocol; to be vc1 given as a bolus over 60 minutes 00:24 Drug: GI Cocktail without - (Maalox PO 30 ml, Lidocaine Mucous Membrane 2 % 15 vc1 ml) PO once Route: PO; Medication: 02/08 22:37 VIS not applicable for this client. vc1 Outcome: 02/09 00:26 Discharge ordered by . ajit 00:33 Discharged to home ambulatory, vc1 00:33 Condition: good 00:33 Discharge instructions given to patient, Instructed on discharge instructions, follow up and referral plans. Demonstrated understanding of instructions, follow-up care, 00:34 Patient left the ED. vc1 Signatures: Dispatcher [employer] EDMS Shaila Mann, NUMERICAL CONTROL OPERATOR-C NUMERICAL CONTROL OPERATOR-CkNikki [email or web address] Erum Baeza, RN RN vc1
--- NOTE | 2024-02-10 00:26 | EDPHYS ---
Physician Documentation [facility] Name: Denys Juarez Age: 63 yrs Sex: Male : 1960 Arrival Date: 02/09/2024 Time: 22:18 Bed 11 Private MD: ED Physician Edgar Jacobson HPI: 02/09 00:18 This 63 yrs old Male presents to ER via Ambulatory with complaints of Breathing kb Difficulty, PACE MAKER PROCEDURE DONE ON 02/03/24. 00:18 Pt is a 63 year old male who presents for upper abd bloating and belching that began kb 1.5 hours captain room service after eating. Pt states the bloating in the upper abd has made him feel short of breath. States he had a pacemaker placed 6 days ago and didn't want to take any chances so he came in. States he feels like this is GERD. Denies chest pain, palpitations. . Historical: - Allergies: 02/08 22:33 No Known Allergies; vc1 - Immunization history:: Client reports having NOT received the Covid vaccine. Flu vaccine is up to date. - Infectious Disease History:: Denies. - Social history:: Smoking status: Patient/guardian denies using tobacco, but has a distant history of tobacco abuse. ROS: 02/09 00:10 Constitutional: As per HPI kb Exam: 00:10 Constitutional: This is a well developed, well nourished patient who is awake, alert, kb and in no acute distress. Head/Face: Normocephalic, atraumatic. ENT: Moist Mucous membranes Cardiovascular: Regular rate Respiratory: Respirations even and unlabored. No increased work of breathing. Talking in full sentences Abdomen/GI: Soft, non-tender. No distention Skin: Warm, dry with normal turgor. Normal color. MS/ Extremity: Pulses equal, no cyanosis. Neurovascular intact. Full, normal range of motion. Neuro: Awake and alert, GCS 15, oriented to person, place, time, and situation. 00:10 Chest/axilla: surgical dressing in place to left upper chest without erythema, drainage, or swelling. 00:17 ECG was reviewed by the Attending Physician. kb Vital Signs: 02/08 22:29 BP 148 / 61; Pulse 89; Resp 18; Temp 98; Pulse Ox 97% ; Weight 142.88 kg; Height 5 ft. vc1 11 in. ; Pain 0/10; 22:29 Body Mass Index 43.93 (142.88 kg, 180.34 cm) vc1 22:29 Pain Scale: Adult vc1 MDM: 22:24 Medical Screening Exam initiated kb 02/09 00:18 Data reviewed: vital signs, nurses notes. kb 00:24 Differential diagnosis: GERD, ulcer, gastritis. Test considered but Not performed: kb Labs: cbc, cmp and lipase considered and ordered. Pt's symptoms resolved before blood could be obtained. Pt states he doesn't think he needs the labs and would like to go home. Educated on strict return precautions. . Historians other than the Patient: Spouse/Significant Other: . Counseling: I had a detailed discussion with the patient and/or guardian regarding the historical points, exam findings, and any diagnostic results supporting the discharge/admit diagnosis, radiology results, the need for outpatient follow up, a family practitioner, to return to the emergency department if symptoms worsen or persist or if there are any questions or concerns that arise at home. 02/08 22:32 Order name: Chest Single View XRAY vc1 02/08 22:32 Order name: EKG; Complete Time: :32 vc1 02/08 22:32 Order name: EKG - Nurse/Tech; Complete Time: 00:24 vc1 EC:17 Rate is 83 beats/min. Rhythm is regular. QRS [place] is Normal. [place] interval is prolonged kb at 162 msec. QRS interval is normal at 138 msec. QT interval is normal at 484 msec. Administered Medications: 00:24 Not Given (Physician Discretion): [id number] mg IVP once; dilute with 10 mL 0.9% vc1 NaCl; give over 2 minutes 00:24 Not Given (Physician Discretion): ns 0.9% 1000 ml IV at 1 bolus Per protocol; to be vc1 given as a bolus over 60 minutes 00:24 Drug: GI Cocktail without - (Maalox PO 30 ml, Lidocaine Mucous Membrane 2 % 15 vc1 ml) PO once Route: PO; Disposition: 01:21 Co-signature as Attending Physician, Edgar Jacobson MD I reviewed the patient's care rn provided by the Advanced Practice Provider and agree with the diagnosis and treatment plan. Disposition Summary: 02/10/24 00:26 Discharge Ordered Notes: Location: Home kb Condition: Stable kb Diagnosis - Gastro-esophageal reflux disease without esophagitis kb Followup: kb - With: Emergency Department - When: As needed - Reason: Worsening of condition Followup: kb - With: Private Physician - When: 2 - 3 days - Reason: Recheck today's complaints, Continuance of care, Re-evaluation by your physician Discharge Instructions: - Discharge Summary Sheet kb - Gastroesophageal Reflux Disease, Adult, [id number] kb Forms: - Medication Reconciliation Form kb - Antibiotic Education kb - Prescription Opioid Use kb - Patient Portal Instructions kb - Leadership Thank You Letter kb Signatures: Dispatcher [employer] EDWY Shaila Mann, CUTTER AND PRESSER-C CUTTER AND PRESSER-Ckb Edgar Jacobson MD MD rn Calcote, Vanessa, RN RN vc1 Corrections: (The following items were deleted from the chart) 00:24 12 22:32 IV Saline Lock ordered. vc1 vc1 02/09 00:24 12 22:32 Labs collected and sent ordered. vc1 vc1
[2024-02-10 00:39] VITALS: BP 148/61; TEMP 98; O2SAT 97
--- NOTE | 2024-02-10 05:21 | RAD REPORT ---
EXAM: XR Chest, 1 View CLINICAL HISTORY: The patient is 63 years old and is Male; DYSPNEA TECHNIQUE: Frontal view of the chest. COMPARISON: No relevant prior studies available. FINDINGS: Lungs: Mildly prominent interstitial markings. No consolidation. Pleural space: Unremarkable. No pneumothorax. Heart: Unremarkable. Mediastinum: Unremarkable. Normal mediastinal contour. Bones/joints: No acute findings. Tubes, lines and devices: Left-sided pacemaker/AICD. IMPRESSION: No acute findings in the chest. Electronically signed by: Gerson Urbina MD 02/09/2024 11:53 PM [facility] 8 Due to temporary technical issues with the PACS/ADINCON reporting system, reports are being milton d by the in-house radiologist without review as a courtesy to ensure prompt reporting the interpreting radiologist is fully responsible for the content of the report. Transcribed Date/Time: 02/10/2024 5:21 AM
--- NOTE | 2024-02-10 14:38 | EKG ---
Test Date: 2024-02-10 Test Time: 00:11:32 Fire Medic: DARRYL MEASUREMENT RESULTS: Intervals: Rate: 83 AK: 162 QRSD: 138 QT: 412 QTc: 484 [place]: P: 4 AK: 162 QRS: -24 T: 150 INTERPRETIVE STATEMENTS: Electronic ventricular pacemaker Compared to ECG 03/07/2020 08:05:12 Sinus rhythm no longer present Electronically Signed On 02-10-24 14:37:56 CHIEF MAINTENANCE SUPERVISOR by Andres Britt
== END 2024-02-10 00:34 | disposition home or self-care (01) ==
LOC: ER 22:18
DX: K21.9 Gastro-esophageal reflux disease without esophagitis (principal)
CPT/HCPCS: 71045; 93005; 99283; J7030